=== PATIENT | female | born 1935 | race Caucasian/White ===

== ENCOUNTER 2019-04-01 20:09 | Inpatient (IN) | payer MEDICARE, OTHER ==
--- NOTE | 2019-04-01 22:12 | PDOC ---
Documentation entered by Josefina Mccartney SCRIBE, acting as scribe for Jyothi Hickey MD. Jyothi Hickey MD: This documentation has been prepared by the scribe, Josefina Mccartney SCRIBE, under my direction and personally reviewed by me in its entirety. I confirm that the documentation accurately reflects all work, treatment, procedures, and medical decision making performed by me. Attending Attestation - Resident Resident Name: Austin Curry - ED Attending Attestation I have performed the following: I have examined & evaluated the patient, The case was reviewed & discussed with the resident, I agree w/resident's findings & plan, Exceptions are as noted - HPI HPI: 04/01/19 21:37 The patient is an 84-year-old female with a past medical history significant for HTN, COPD (not on home O2), AAA who presents to the emergency department from [facility] for three days of generalized weakness, decreased appetite, urine output, and no bowel movement. The patient reports shes been bed-bound for the past days. Denies the history of MIs. - Physicial Exam PE: 04/01/19 21:41 GENERAL: Cachectic 84 year old female. No apparent distress. HEENT: Dry mucous membranes. Normocephalic, atraumatic. PERRL, EOM intact. CARDIOVASCULAR: Regular rate and rhythm. PULMONARY: Clear to auscultation bilaterally. ABDOMEN: +flat abdomen with a palpable pulsatile mass. Soft, non-distended, non-tender. EXTREMITIES: Normal ROM in all four extremities. No gross deformities. SKIN: Warm, dry. No rash NEUROLOGICAL: Alert and oriented, moving all her extremities, conversant. - Medical Decision Making 04/01/19 22:10 Cachectic 84-year-old female brought in by ambulance from [facility] for failure to thrive, Bedbound for several days,decreased p.o. intake Concern for infection, UTI, neurological diagnoses such as subacute hematoma, GI bleed, anemia, and STEMI, neoplasm -Patient has a known AAA and surgery was done at [facility] in December 2018 however they were unable to repair her AAA She is DNR and DNI with capacity Her niece is her healthcare proxy and power of tax associate attorney and she is bedside Plan CBC, chemistry, troponin, UA UC, chest x-ray, head CT, CT abdomen pelvis, IV fluids, reassess 04/01/19 22:14 EKG is normal sinus rhythm at 87 bpm with occasional PVCs, right bundle branch block 04/02/19 01:07 CAT scan of the head does not show any acute mass, there is no acute infarct or bleed 04/02/19 20:33
--- NOTE | 2019-04-01 22:13 | PDOC ---
History of Present Illness - General Chief Complaint: Loss of Appetite Stated Complaint: WEAKNESS AND ABDOMINAL PAIN Time Seen by Provider: 04/01/19 20:56 - History of Present Illness Initial Comments: Alina Beckford is a 84 y/o female with PMH significant for HTN, COPD, depression , AAA s/p repair attempt, presenting today with 3 days of decreased appetite, decreased urine output, decreased bowel movements, nausea, and vomiting NBNB. [facility]. Reports that she started having decreased in appetite but denies any associated pain or difficulty swallowing. No abdominal pain. No fever/chills. No chest pain/shortness of breath. No headache. Also reports generalized weakness and that she is no longer able to get out of bed. Past History - Past Medical History Allergies/Adverse Reactions: Allergies Allergy/AdvReac Type Severity Reaction Status Date / Time No Known Allergies Allergy Verified 04/01/19 23:27 Home Medications: Ambulatory Orders Acetaminophen [Tylenol] 650 mg PO PRN PRN 04/02/19 Albuterol Sulfate [Proair Hfa] 8.5 gm IH PRN PRN 04/02/19 Calcium Carbonate [Calcium] 600 mg PO DAILY 04/02/19 Docusate Sodium [Colace] 100 mg PO TID 04/02/19 Escitalopram Oxalate [Lexapro -] 5 mg PO DAILY 04/02/19 Fluticasone Propion/Salmeterol [Wixela 250-50 Inhub] 1 each IH BID 04/02/19 Melatonin 10 mg PO HS 04/02/19 Metoprolol Succinate 50 mg PO DAILY 04/02/19 Polyethylene Glycol 3350 [Miralax (For Daily Use) -] 17 gm PO DAILY 04/02/19 Sennosides [Senna] 8.6 mg PO HS 04/02/19 Tiotropium [place] [Spiriva] 18 mcg IH DAILY 04/02/19 Vit C/E/Zn/Coppr/Lutein/Zeaxan [Preservision Areds 2 Softgel] 1 each PO BID Review of Systems - Review of Systems Comments:: GENERAL/CONSTITUTIONAL: No fever or chills. Reports generalized weakness. Reports decreased appetite. HEAD, EYES, EARS, NOSE AND THROAT: No change in vision. No change in hearing. No sore throat._ CARDIOVASCULAR: No chest pain or shortness of breath_ RESPIRATORY: Denies cough, hemoptysis_ GASTROINTESTINAL: Reports nausea and vomiting. Reports decreased bowel movements. GENITOURINARY: No dysuria, frequency. Reports decreased urination. MUSCULOSKELETAL: No joint or muscle swelling or pain. No neck or back pain._ SKIN: No rash_ NEUROLOGIC: No headache, vertigo, loss of consciousness, or change in strength/ sensation._ ENDOCRINE: No increased thirst. No abnormal weight change_ HEMATOLOGIC/LYMPHATIC: No anemia, easy bleeding, or history of blood clots._ ALLERGIC/IMMUNOLOGIC: No hives or skin allergy._ *Physical Exam - Physical Exam GENERAL: Awake, alert, and oriented to person/place/time, in no acute distress. Pt appears emaciated. HEAD: No signs of trauma, normocephalic, atraumatic _ EYES: PERRLA, EOMI, sclera anicteric, conjunctiva clear_ ENT: Hearing grossly normal, nares patent, oropharynx clear without exudates. No uvular deviation. Moist mucosa_ NECK: Normal ROM, supple, no lymphadenopathy, JVD, or masses_ LUNGS: No distress, speaks in full sentences, clear to auscultation bilaterally _ HEART: Regular rate and rhythm, normal S1 and S2, no murmurs appreciated, peripheral pulses normal and equal bilaterally._ ABDOMEN: Soft, nontender. No guarding, no rebound. Pulsatile mass appreciated consistent with known AAA. EXTREMITIES: Normal inspection, Normal range of motion, no edema. No clubbing or cyanosis_ NEUROLOGICAL: Cranial nerves II through XII grossly intact. Normal speech. SKIN: Warm, Dry, normal turgor, no rashes or lesions noted_ ED Treatment Course - LABORATORY CBC & Chemistry Diagram: 04/03/19 07:35 04/03/19 07:35 - RADIOLOGY Radiology Studies Ordered: Category Date Time Status HEAD CT WITHOUT CONTRAST [CT] Stat CT Scan 04/01/19 21:33 Ordered CHEST X-RAY PORTABLE* [RAD] Stat Radiology 04/01/19 21:33 Taken Medical Decision Making - Medical Decision Making 84F hx of HTN, COPD, known AAA, presenting with generalized weakness, decreased appetite/urine output/BM, failure to thrive. -cbc, cmp -ekg, trop, cxr -ua, ucx -ct head, ct abd pelv w/ contrast 04/01/19 23:36 EKG shows sinus rhythm with occasional PVCs, 87 bpm, RBBB, no ST elevation/ depression, QTc 459, no prior for comparison. 04/02/19 00:01 Labs reviewed. Laboratory Last Values WBC 13.5 K/mm3 (4.0-10.0) H 04/01/19 22:00 RBC 3.69 M/mm3 (3.60-5.2) 04/01/19 22:00 Hgb 10.5 GM/dL (10.7-15.3) L 04/01/19 22:00 Hct 33.3 % (32.4-45.2) 04/01/19 22:00 MCV 90.2 fl (80-96) 04/01/19 22:00 MCH 28.5 pg (25.7-33.7) 04/01/19 22:00 MCHC 31.6 g/dl (32.0-36.0) L 04/01/19 22:00 RDW 17.9 % (11.6-15.6) H 04/01/19 22:00 Plt Count 310 K/MM3 (134-434) 04/01/19 22:00 MPV 9.3 fl (7.5-11.1) 04/01/19 22:00 Absolute Neuts (auto) 9.6 K/mm3 (1.5-8.0) H 04/01/19 22:00 Neutrophils % 71.4 % (42.8-82.8) 04/01/19 22:00 Lymphocytes % 22.3 % (8-40) 04/01/19 22:00 Monocytes % 4.8 % (3.8-10.2) 04/01/19 22:00 Eosinophils % 0.0 % (0-4.5) 04/01/19 22:00 Basophils % 1.5 % (0-2.0) 04/01/19 22:00 Nucleated RBC % 0 % (0-0) 04/01/19 22:00 Sodium 144 mmol/L (136-145) 04/01/19 22:00 Potassium 3.9 mmol/L (3.5-5.1) 04/01/19 22:00 Chloride 105 mmol/L (98-107) 04/01/19 22:00 Carbon Dioxide 33 mmol/L (21-32) H 04/01/19 22:00 Anion Gap 6 MMOL/L (8-16) L 04/01/19 22:00 BUN 23.6 mg/dL (7-18) H 04/01/19 22:00 Creatinine 0.7 mg/dL (0.55-1.3) 04/01/19 22:00 Est GFR (CKD-EPI)AfAm 92.21 04/01/19 22:00 Est GFR (CKD-EPI)NonAf 79.56 04/01/19 22:00 Random Glucose 94 mg/dL (74-106) 04/01/19 22:00 Calcium 10.3 mg/dL (8.5-10.1) H 04/01/19 22:00 Total Bilirubin 0.3 mg/dL (0.2-1) 04/01/19 22:00 AST 17 U/L (15-37) 04/01/19 22:00 ALT 11 U/L (13-61) L 04/01/19 22:00 Alkaline Phosphatase 85 U/L (45-117) 04/01/19 22:00 Creatine Kinase 19 U/L (26-192) L 04/01/19 22:00 Troponin I 0.04 ng/ml (0.00-0.05) 04/01/19 22:00 B-Natriuretic Peptide 1624.1 pg/ml (5-450) H 04/01/19 22:00 Total Protein 6.3 g/dl (6.4-8.2) L 04/01/19 22:00 Albumin 2.4 g/dl (3.4-5.0) L 04/01/19 22:00 TSH 0.44 uIU/ml (0.358-3.74) 04/01/19 22:00 04/02/19 00:16 CXR shows no acute intra thoracic pathology. 04/02/19 01:09 CT head shows no acute intracranial pathology. 04/02/19 02:02 CT abd shows known AAA with outpouchings, and stenosis of the celiac and SMA. D/ w the case with Dr. Augustine. 04/02/19 02:08 D/w Dr. Carmona who accepts the patient for admission. Urine Test Results Urine Color Yellow 04/02/19 01:00 Urine Appearance Clear 04/02/19 01:00 Urine pH 8.0 (5.0-8.0) 04/02/19 01:00 Ur Specific [place] 1.016 (1.010-1.035) 04/02/19 01:00 Urine Protein Negative (NEGATIVE) 04/02/19 01:00 Urine Glucose (UA) Negative (NEGATIVE) 04/02/19 01:00 Urine Ketones Negative (NEGATIVE) 04/02/19 01:00 Urine Blood Negative (NEGATIVE) 04/02/19 01:00 Urine Nitrite Positive (NEGATIVE) H 04/02/19 01:00 Urine Bilirubin Negative (NEGATIVE) 04/02/19 01:00 Ur Leukocyte Esterase 2+ (NEGATIVE) H 04/02/19 01:00 Discharge - Discharge Information Problems reviewed: Yes Clinical Impression/Diagnosis: Failure to thrive, AAA (abdominal aortic aneurysm) Condition: Guarded Disposition: HOME - Admission Yes - Follow up/Referral - Patient Discharge Instructions - Post Discharge Activity
[2019-04-01 22:35] LABS: BASO % 1.5 % (0-2.0); HEMATOCRIT 33.3 % (32.4-45.2); HEMOGLOBIN 10.5 GM/dL (10.7-15.3); LYMPH % 22.3 % (8-40); MCH 28.5 pg (25.7-33.7); MCHC 31.6 g/dl (32.0-36.0); MEAN CELL VOLUME 90.2 fl (80-96); MEAN PLT VOLUME 9.3 fl (7.5-11.1); MONO % 4.8 % (3.8-10.2); NEUT % 71.4 % (42.8-82.8); PLATELET COUNT 310 K/MM3 (134-434); RBC 3.69 M/mm3 (3.60-5.2); RDW 17.9 % (11.6-15.6); WHITE BLOOD COUNT 13.5 K/mm3 (4.0-10.0)
[2019-04-01 23:02] LABS: ALBUMIN 2.4 g/dl (3.4-5.0); BILIRUBIN,TOTAL 0.3 mg/dL (0.2-1); BLOOD UREA NITROGEN 23.6 mg/dL (7-18); CALCIUM 10.3 mg/dL (8.5-10.1); CREATININE 0.7 mg/dL (0.55-1.3); POTASSIUM 3.9 mmol/L (3.5-5.1); TOT PROT 6.3 g/dl (6.4-8.2)
[2019-04-01 23:10] LABS: N-TERMINAL BNP 1624.1 pg/ml (5-450)
[2019-04-01] MEDS ORDERED: SODIUM CHLORIDE 1,000 ML IV STA (23:14)
[2019-04-02 02:39] LABS: EPI CELLS 0.3 /HPF (0-5/HPF); HYALINE CASTS 3 /lpf (0-8); URINE APPEARANCE CLEAR; URINE BACTERIA 1184.1 /hpf (NEGATIVE); URINE BILIRUBIN NEGATIVE (NEGATIVE); URINE COLOR YELLOW; URINE GLUCOSE (UA) NEGATIVE (NEGATIVE); URINE KETONE NEGATIVE (NEGATIVE); URINE LEUK ESTERASE 2+ (NEGATIVE); URINE NITRITE POSITIVE (NEGATIVE); URINE PROTEIN NEGATIVE (NEGATIVE); URINE RBC 1 /hpf (0-4); URINE UROBILINOGEN 0.2 mg/dL (0.2-1.0); URINE WBC 30 /hpf (0-5)
--- NOTE | 2019-04-02 03:44 | HP ---
Admitting History and Physical - Admission Chief Complaint: Acute generalized muscle weakness, and abdominal pain History of Present Illness: This 84 yr old w/f with hx of abdominal aortic aneurysm, HTN, COPD, and depression admitted via ER with an acute generalized muscle weakness, acute anorexia, acute abdominal pain, acute dehydration, and acute abnormal weight loss (40 lbs within past 6 to 7 months). 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 Cardiovascular: Yes: Aneurysm (AAA) Pulmonary: No: Asthma, Bronchitis, Cancer, COPD, O2 Dependent, Pneumonia, Previously Intubated, Pulmonary Embolus, Pulmonary Fibrosis, Sleep Apnea, Other Gastrointestinal: No: Ascites, Cancer, Constipation, Crohn's Disease, Diverticulitis, Diverticulosis, Esophageal Varices, Gastritis, GERD, GI Bleed, Hemorrhoids, Hiatal Hernia, Inflamatory Bowel Disease, Irritable Bowel Disease, Pancreatitis, Peptic Ulcer Disease, Ulcerative Colitis, Other Hepatobiliary: No: Cirrhosis, Cholelithiasis, Cholecystitis, Choledocholithiasis , Hepatitis A, Hepatitis B, Hepatitis C, Other Renal/: No: Renal Failure, Renal Inusuff, BPH, Cancer, Hematuria, Hemodialysis , Neurogenic Bladder, Renal Calculi, UTI, Other Heme/Onc: No: Anemia, B12 Deficiency, Bleeding Disorder, Cancer, Current Chemotherapy, Current Radiation Therapy, Hemochromatosis, Hypercoaguable State, Myeloproliferative Synd, Sickle Cell Disease, Sickle Cell Trait, Thrombocytopenia, Other Infectious Disease: No: AIDS, C-Diff, Herpes Zoster, HIV, MRSA, STD's, Tuberculosis, VREF, Other Psych: No: Addictions, Anxiety, Bipolar, Depression, Panic, Psychosis, Schizophrenia, Other Musculoskeletal: No: Bursitis, Chronic low back pain, Hemiparesis, Hemiplegia, Osteoarthritis, Paraplegia, Other Rheumatology: No: Fibromyalgia, Gout, Lupus, Rheumatoid Arthritis, Sarcoidosis, Vasculitis, Other ENT: No: Allergic Rhinitis, Sinusitis, Other Endocrine: No: Markell's Disease, Abhijit's Disease, Diabetes Insipidus, Diabetes Mellitus, Hyperparathyroidism, Hyperthyroidism, Hypothyroidism, Osteopenia, SIADH, Other Dermatology: No: Basal Cell, Cellulitis, Eczema, Melanoma, Psoriasis, Squamous Cell, Other - Smoking History Smoking history: Former smoker Have you smoked in the past 12 months: No - Alcohol/Substance Use Hx Alcohol Use: No - Social History Usual Living Arrangement: Yes: Assisted Living Home Medications - Allergies Allergies/Adverse Reactions: Allergies Allergy/AdvReac Type Severity Reaction Status Date / Time No Known Allergies Allergy Verified 04/01/19 23:27 Review of Systems - Review of Systems Constitutional: reports: Unintentional Wgt. Loss, Weakness Eyes: reports: No Symptoms HENT: reports: No Symptoms Neck: reports: No Symptoms Cardiovascular: reports: No Symptoms Respiratory: reports: No Symptoms Gastrointestinal: reports: Abdominal Pain Genitourinary: reports: No Symptoms Breasts: reports: No Symptoms Reported Musculoskeletal: reports: No Symptoms Integumentary: reports: No Symptoms Endocrine: reports: No Symptoms Hematology/Lymphatic: reports: No Symptoms Psychiatric: reports: No Symptoms Physical Examination Vital Signs: Vital Signs Temperature 98.2 F 04/01/19 20:09 Pulse Rate 16 L 04/01/19 20:09 Respiratory Rate 18 04/01/19 20:09 Blood Pressure 139/56 L 04/01/19 20:09 O2 Sat by Pulse Oximetry (%) 100 04/01/19 20:09 Constitutional: Yes: Cachectic, Mild Distress Eyes: Yes: Conjunctiva Clear, EOM Intact HENT: Yes: Atraumatic, Normocephalic Neck: Yes: Supple, Trachea Midline Cardiovascular: Yes: Regular Rate and Rhythm Respiratory: Yes: Regular, CTA Bilaterally Gastrointestinal: Yes: Normal Bowel Sounds, Soft, Pulsatile Mass (AAA) ...Rectal Exam: Yes: Deferred Renal/: Yes: WNL Breast(s): Yes: WNL Musculoskeletal: Yes: Muscle Weakness Extremities: Yes: Other (generalized muscle weakness) Edema: No Peripheral Pulses WNL: Yes Peripheral Pulses: Left Radial: 2+, Right Radial: 2+, Left Doralis Pedis: 2+, Right Dorsalis Pedis: 2+, Left Femoral: 3+, Right Femoral: 3+ Integumentary: Yes: WNL Neurological: Yes: WNL, Weakness ...Motor Strength: LUE (muscle weakness), LLE (muscle weakness), RUE (muscle weakness), RLE (muscle weakness) Psychiatric: Yes: WNL Labs: CBC, BMP 04/01/19 22:00 04/01/19 22:00 Imaging - Results Other: Report Reviewed (Lab data reviewed) Problem List - Problems (1) AAA (abdominal aortic aneurysm) Code(s): I71.4 - ABDOMINAL AORTIC ANEURYSM, WITHOUT RUPTURE (2) Failure to thrive Code(s): ASJ6535 - (3) Abnormal weight loss Code(s): R63.4 - ABNORMAL WEIGHT LOSS (4) Cachexia Code(s): R64 - CACHEXIA (5) Dehydration Code(s): E86.0 - DEHYDRATION Assessment/Plan Assessment/plan: acute generalized muscle weakness, acute dehydration, acute abnormal weight loss, acute anorexia, acute debility, AAA, acute failure to thrive; IV fluids, DVT prophylaxis, SCDs, consultation to ID and Security Trainer, physical therapy.
[2019-04-02] MEDS ORDERED: PT OWN MED DRAWER 7, Y5N ONE (09:21)
[2019-04-02] MEDS: ENOXAPARIN NA (PORCINE) 30 MG/0.3 ML DISP.SYRIN SQ SCH (09:21)
--- NOTE | 2019-04-02 09:40 | EKG ---
Test Reason : Blood Pressure : / mmHG Vent. Rate : 087 BPM Atrial Rate : 087 BPM P-R Int : 138 ms QRS Dur : 122 ms QT Int : 382 ms P-R-T Axes : 078 082 073 degrees QTc Int : 459 ms SINUS RHYTHM WITH OCCASIONAL PREMATURE VENTRICULAR COMPLEXES RIGHT BUNDLE BRANCH BLOCK ABNORMAL ECG NO PREVIOUS ECGS AVAILABLE Confirmed by Austin Mcintosh MD ([id number]) on 04/02/2019 9:40:06 AM Referred By: Confirmed By:Austin Mcintosh MD
--- NOTE | 2019-04-02 14:05 | PN ---
Progress Note (short form) - Note Progress Note: Id consult dictated imp/reccd 84 yo female admitted from [facility] with failure to thrive she has a known inoperable AAA- reports she was hospitalized at [facility] in December 2018- reports she is DNR/DNI she has lost 40 pounds since last summer has been getting progressively weaker no appetite one episode of vomiting +nausea no dysuria no fevers no BM for last 3 to 4 days failure to thrive inoperable AAA DNR/DNI leukocytosis/pyuria fecal retention cannot r/o UTI suggest blood cultures ceftriaxone for UTI overall prognosis is poor palliative care seems appropriate Problem List - Problems (1) Failure to thrive Code(s): TCF8735 - (2) AAA (abdominal aortic aneurysm) Code(s): I71.4 - ABDOMINAL AORTIC ANEURYSM, WITHOUT RUPTURE (3) UTI (urinary tract infection) Code(s): N39.0 - URINARY TRACT INFECTION, SITE NOT SPECIFIED (4) Fecal retention Code(s): K59.00 - CONSTIPATION, UNSPECIFIED
[2019-04-02] MEDS: AMINO ACIDS 4.25%/D5W 1,000 ML IV SCH (14:15)
[2019-04-02] MEDS ORDERED: CEFTRIAXONE 1 GM/50 ML BAG ONE (14:19)
[2019-04-02] MEDS: CEFTRIAXONE 1 GM in DEXTROSE 5%-WATER - 50 ML IVPB SCH (14:42)
--- NOTE | 2019-04-02 15:02 | CONS ---
INFECTIOUS DISEASE CONSULTATION DATE OF CONSULTATION: 04/02/2019 HISTORY OF PRESENT ILLNESS: This is a yoana, 84-year-old, woman who comes from assisted living at [facility]. She has a history of hypertension, COPD, and depression. She has an inoperable abdominal aortic aneurysm. She reports she was admitted in December to [facility]. They were unable to repair her aneurysm. She has had over the last 6 months, progressive weight loss of 40 pounds. She has no appetite at all for the last 5-6 weeks. She has not had a bowel movement for the last 3-4 days. She has grown progressively more weak. She is unable to walk for the last 1 week. She has no dysuria. She has had one episode of vomiting and has some persistent nausea. She lives alone. She is unmarried. PAST MEDICAL HISTORY: Notable for the abdominal aortic aneurysm. She has a history of hypertension, COPD, and depression. SURGICAL HISTORY: Was an attempted repair of the aneurysm in December at [facility]. SOCIAL HISTORY: She lives in assisted living. She is a former smoker; she stopped 7 years ago. She is retired. She used to work in [place]. She is single and she has several nieces and nephews who are involved in her life. ALLERGIES: She has no known drug allergies. MEDICATIONS: At the [facility] include Spiriva, senna, MiraLAX, metoprolol, melatonin, Wixela inhaler, Lexapro, Colace, calcium, ProAir, and PreserVision eyedrops. REVIEW OF SYSTEMS: Is notable for the nausea. She had one episode of vomiting. generalized weakness, and lack of appetite with 40-pound weight loss. PHYSICAL EXAMINATION: General: She is a very pleasant, elderly woman. She is alert and oriented x3. She has generalized weakness. Vital Signs: Her temperature is 97.5, pulse of 87, blood pressure 110/48, respiratory rate is 16; she is saturating 100% on room air. HEENT: She is normocephalic. Her eyes are anicteric. Neck: Supple. She has severe cachexia. Lungs: Clear to auscultation. Heart: Regular rate and rhythm. Abdomen: Soft. Peripheral Vascular: She has bilateral femoral pulses. Her feet are warm. Extremities: Without edema. LABORATORIES: Her white count is 13.5, hemoglobin 10.5, platelets are 310. BUN and creatinine are 23 and 0.7. LFTs are normal. Her urinalysis has 2+ leuks with 30 white cells. Urine culture has been sent. IMAGING: She had a chest x-ray done in the emergency room that is notable for hyperaeration, a heavily calcified aorta, no acute process. She had a head CT and CT of her abdomen and pelvis. The head CT shows no acute process and the CAT scan of her abdomen and pelvis is notable for an abdominal aortic aneurysm with extensive thrombosis. She has moderate fecal retention. In summary, this is an 84-year-old woman with failure to thrive, severe weight loss, inoperable abdominal aortic aneurysm. She weighs 27 kg. She is DNR, DNI. She has leukocytosis and pyuria with fecal retention. Cannot rule out UTI. Would suggest you get blood cultures. Treat her with ceftriaxone. Overall prognosis is poor. Palliative care seems appropriate. XAVIER FERNANDES M.D. [id number] MTDD
[2019-04-02] MEDS ORDERED: POLYETHYLENE GLYCOL 3350 119 GM BTL PO ONE (15:37)
[2019-04-02] MEDS ORDERED: DOCUSATE SODIUM 100 MG CAPSULE (FP) PO PRN (15:38)
[2019-04-02] MEDS ORDERED: PANTOPRAZOLE SODIUM 40 MG VIAL ONE (16:07)
[2019-04-02] MEDS: PANTOPRAZOLE SODIUM 40 MG VIAL IVPUSH SCH (16:13)
[2019-04-02 19:18] VITALS: BMI 12.2
[2019-04-02] MEDS ORDERED: ALBUTEROL SO4 2.5/IPRATROPIUM 0.5 INH SOL 3 ML VIAL.NEB. NEB PRN (19:32)
[2019-04-02] MEDS ORDERED: ONDANSETRON 4 MG/2 ML VIAL IVPUSH PRN (19:53)
[2019-04-02] MEDS: SENNOSIDES 8.6MG TABLET (FP) PO SCH (21:33)
[2019-04-02] MEDS: MELATONIN 5 MG TABLETS PO SCH (21:33)
[2019-04-02] MEDS: DOCUSATE SODIUM 100 MG CAPSULE (FP) PO SCH (21:33)
[2019-04-02] MEDS ORDERED: FAT EMULSION/OLIVE/SOY (CLINOLIPID) 250 ML EMULSION IV SCH (22:00)
[2019-04-03] MEDS: FAT EMULSION/OLIVE/SOY/PHOSPHO 250 ML IV SCH ×2 (01:08→21:44)
[2019-04-03] MEDS: DOCUSATE SODIUM 100 MG CAPSULE (FP) PO SCH ×3 (06:22→21:38)
[2019-04-03 08:34] LABS: BASO % 0.4 % (0-2.0); EOS % 0.6 % (0-4.5); HEMATOCRIT 31.5 % (32.4-45.2); HEMOGLOBIN 10.1 GM/dL (10.7-15.3); LYMPH % 21.8 % (8-40); MCH 28.9 pg (25.7-33.7); MCHC 32.2 g/dl (32.0-36.0); MEAN CELL VOLUME 89.8 fl (80-96); MEAN PLT VOLUME 10.1 fl (7.5-11.1); MONO % 4.2 % (3.8-10.2); PLATELET COUNT 251 K/MM3 (134-434); RDW 17.9 % (11.6-15.6); WHITE BLOOD COUNT 14.7 K/mm3 (4.0-10.0)
[2019-04-03 09:07] LABS: ALBUMIN 2.1 g/dl (3.4-5.0); BILIRUBIN,TOTAL 0.5 mg/dL (0.2-1); BLOOD UREA NITROGEN 31.9 mg/dL (7-18); CALCIUM 8.6 mg/dL (8.5-10.1); CREATININE 0.6 mg/dL (0.55-1.3); TOT PROT 5.7 g/dl (6.4-8.2)
[2019-04-03 09:14] LABS: POTASSIUM 2.8 mmol/L (3.5-5.1)
[2019-04-03] MEDS ORDERED: DEXTROSE 5%-WATER - 50 ML IVPB ONE (09:32)
[2019-04-03] MEDS ORDERED: cefTRIAXone SODIUM 1 GM VIAL ONE (09:32)
[2019-04-03] MEDS: CEFTRIAXONE 1 GM in DEXTROSE 5%-WATER - 50 ML IVPB SCH (09:45)
[2019-04-03] MEDS: ENOXAPARIN NA (PORCINE) 30 MG/0.3 ML DISP.SYRIN SQ SCH (09:45)
[2019-04-03] MEDS: AMINO ACIDS 4.25%/D5W 1,000 ML IV SCH ×2 (09:46→16:24)
[2019-04-03] MEDS: POLYETHYLENE GLYCOL 3350 119 GM BTL PO SCH (09:46)
[2019-04-03] MEDS: TIOTROPIUM BROMIDE 2.5 MCG (SPIRIVA) RESPIMAT INHALER IH SCH (09:52)
[2019-04-03] MEDS: PANTOPRAZOLE SODIUM 40 MG VIAL IVPUSH SCH (09:52)
--- NOTE | 2019-04-03 09:53 | PN ---
Progress Note, Physician Chief Complaint: Patient seen and examined at the bedside, no acute events from last night, generalized muscle weakness. History of Present Illness: This 84 yr old w/f with PMH of 4.8cm in diameter AAA, HTN, COPD, and depression admitted via ER with an acute generalized muscle weakness, acute abnormal weight loss (40 lbs with past 6 months), acute anorexia, acute abdominal pain, acute constipation, and an acute dehydration. - Current Medication List Current Medications: Active Medications Acetaminophen (Tylenol -) 650 mg PO Q6H PRN PRN Reason: MODERATE PAIN Albuterol/Ipratropium (Duoneb -) 1 amp NEB Q6H PRN PRN Reason: SHORTNESS OF BREATH Docusate Sodium (Colace -) 100 mg PO TID [facility] Last Admin: 04/03/19 06:22 Dose: 100 mg Enoxaparin Sodium (Lovenox -) 30 mg SQ DAILY [facility] Last Admin: 04/02/19 09:21 Dose: 30 mg Amino Acids (Clinimix -) 1,000 mls @ 60 mls/hr IV Q24H [facility] Last Admin: 04/02/19 14:15 Dose: 60 mls/hr Fat Emulsion-Piru Oil/Soybean Oil (Clinolipid 20% Iv Fat Emulsion) 250 mls @ 20.833 mls/hr IV DAILY@2200 [facility] Last Admin: 04/03/19 01:08 Dose: 20.833 mls/hr Ceftriaxone Sodium 1 gm/ (Dextrose) 50 mls @ 200 mls/hr IVPB DAILY [facility]; Protocol Last Admin: 04/02/19 14:42 Dose: 200 mls/hr Melatonin (Melatonin) 10 mg PO HS [facility] Last Admin: 04/02/19 21:33 Dose: 10 mg Metoprolol Succinate (Toprol Xl -) 50 mg PO DAILY [facility] Ondansetron HCl (Zofran Injection) 1 mg IVPUSH Q6H PRN PRN Reason: NAUSEA Pantoprazole Sodium (Protonix Iv) 20 mg IVPUSH DAILY [facility] Last Admin: 04/02/19 16:13 Dose: 20 mg Polyethylene Glycol (Miralax (For Daily Use) -) 17 gm PO DAILY [facility] Senna (Senna -) 1 tab PO [facility] Last Admin: 04/02/19 21:33 Dose: 1 tab Tiotropium [place] (Spiriva Respimat) 2 puff IH DAILY YISSEL - Objective Vital Signs: Vital Signs Temperature 97.9 F 04/03/19 09:19 Pulse Rate 99 H 04/03/19 09:19 Respiratory Rate 20 04/03/19 09:19 Blood Pressure 124/58 L 04/03/19 09:19 O2 Sat by Pulse Oximetry (%) 91 L 04/02/19 21:00 Constitutional: Yes: Cachectic, Thin, Other (failure to thrive) Eyes: Yes: Conjunctiva Clear, EOM Intact HENT: Yes: Atraumatic, Normocephalic Neck: Yes: Supple, Trachea Midline Cardiovascular: Yes: Regular Rate and Rhythm Respiratory: Yes: Regular, CTA Bilaterally Gastrointestinal: Yes: Normal Bowel Sounds, Soft, Pulsatile Mass (AAA) ...Rectal Exam: Yes: Deferred Genitourinary: Yes: WNL Breast(s): Yes: WNL Musculoskeletal: Yes: Muscle Weakness Extremities: Yes: Other (generalized muscle weakness) Edema: No Peripheral Pulses WNL: Yes Integumentary: Yes: WNL Neurological: Yes: Unsteady Gait, Weakness Psychiatric: Yes: WNL Labs: CBC, BMP 04/03/19 07:35 04/03/19 07:35 - ....Imaging Other: Report Reviewed (Lab data reviewed) Problem List - Problems (1) AAA (abdominal aortic aneurysm) Code(s): I71.4 - ABDOMINAL AORTIC ANEURYSM, WITHOUT RUPTURE (2) Failure to thrive Code(s): [id number] - (3) Abnormal weight loss Code(s): R63.4 - ABNORMAL WEIGHT LOSS (4) Cachexia Code(s): R64 - CACHEXIA (5) Dehydration Code(s): E86.0 - DEHYDRATION (6) Acute hypokalemia Code(s): E87.6 - HYPOKALEMIA (7) Debility Code(s): R53.81 - OTHER MALAISE (8) Leukocytosis Code(s): D72.829 - ELEVATED WHITE BLOOD CELL COUNT, UNSPECIFIED Assessment/Plan Assessment/plan: acute generalized muscle weakness, acute dehydration, acute abnormal weight loss, acute hypokalemia, acute leukocytosis, acute failure to thrive, acute cachexia, acute anorexia, 4.8cm in diameter AAA; IV fluids, IV potassium chloride, IV Clninimix, IV Lipids, DVT prophylaxis, SCDs, physical therapy.
--- NOTE | 2019-04-03 13:56 | PN ---
Progress Note (short form) - Note Progress Note: remains with no appetite constipation no vomiting Vital Signs Period Temp Pulse Resp BP Sys/Moran Pulse Ox Last 24 Hr 97.6 F-97.9 F 95-104 20-20 117-140/40-67 89-91 cor-rrr lungs clear abd soft,nt ext no edema CBC, BMP 04/03/19 07:35 04/03/19 07:35 Microbiology 04/02/19 01:00 Urine - Urine Clean Catch Urine Culture - Preliminary Non Lactose Fermenting Gnb blood culturs pending a/p failure to thrive inoperable AAA DNR/DNI leukocytosis/pyuria fecal retention cannot r/o UTI suggest blood cultures ceftriaxone for UTI overall prognosis is poor palliative care seems appropriate will f/u cultures
[2019-04-03] MEDS: KCL 10 MEQ IVPB 10 MEQ/100 ML INFUS.BAG IVPB SCH ×3 (16:24→20:30)
[2019-04-03] MEDS: MELATONIN 5 MG TABLETS PO SCH (21:38)
[2019-04-03] MEDS: SENNOSIDES 8.6MG TABLET (FP) PO SCH (21:38)
[2019-04-04] MEDS: DOCUSATE SODIUM 100 MG CAPSULE (FP) PO SCH ×3 (06:21→21:21)
[2019-04-04 08:13] LABS: BASO % 0.2 % (0-2.0); EOS % 0.6 % (0-4.5); HEMATOCRIT 31.8 % (32.4-45.2); HEMOGLOBIN 10.4 GM/dL (10.7-15.3); LYMPH % 14.3 % (8-40); MCH 29.5 pg (25.7-33.7); MCHC 32.7 g/dl (32.0-36.0); MEAN CELL VOLUME 90.3 fl (80-96); MEAN PLT VOLUME 9.9 fl (7.5-11.1); MONO % 4.7 % (3.8-10.2); NEUT % 80.2 % (42.8-82.8); PLATELET COUNT 236 K/MM3 (134-434); RBC 3.53 M/mm3 (3.60-5.2); RDW 17.1 % (11.6-15.6); WHITE BLOOD COUNT 16.9 K/mm3 (4.0-10.0)
[2019-04-04 09:41] LABS: BILIRUBIN,TOTAL 0.2 mg/dL (0.2-1); CALCIUM 8.5 mg/dL (8.5-10.1); CREATININE 0.5 mg/dL (0.55-1.3); POTASSIUM 3.1 mmol/L (3.5-5.1); TOT PROT 5.5 g/dl (6.4-8.2)
[2019-04-04] MEDS ORDERED: cefTRIAXone SODIUM 1 GM VIAL ONE (10:02)
[2019-04-04] MEDS ORDERED: DEXTROSE 5%-WATER - 50 ML IVPB ONE ×2 (10:02→21:13)
[2019-04-04] MEDS: CEFTRIAXONE 1 GM in DEXTROSE 5%-WATER - 50 ML IVPB SCH (10:08)
[2019-04-04] MEDS: PANTOPRAZOLE SODIUM 40 MG VIAL IVPUSH SCH (10:09)
[2019-04-04] MEDS: POLYETHYLENE GLYCOL 3350 119 GM BTL PO SCH (10:09)
[2019-04-04] MEDS: ENOXAPARIN NA (PORCINE) 30 MG/0.3 ML DISP.SYRIN SQ SCH (10:10)
[2019-04-04] MEDS: TIOTROPIUM BROMIDE 2.5 MCG (SPIRIVA) RESPIMAT INHALER IH SCH (10:10)
--- NOTE | 2019-04-04 10:16 | PN ---
Progress Note, Physician Chief Complaint: Patient seen and examined at the bedside, no acute events from last night except for pain and swelling of tongue, and generalized muscle weakness. History of Present Illness: This 84 yr old w/f with PMH of AAA, HTN, COPD, and depression admitted via ER with an acute generalized muscle weakness, acute cachexia, acute anorexia, acute failure to thrive, and an acute abnormal weight loss, acute dehydration, and acute hypokalemia. At present, she is c/o pain and swelling of her tongue ( poor dental hygiene). - Current Medication List Current Medications: Active Medications Acetaminophen (Tylenol -) 650 mg PO Q6H PRN PRN Reason: MODERATE PAIN Albuterol/Ipratropium (Duoneb -) 1 amp NEB Q6H PRN PRN Reason: SHORTNESS OF BREATH Docusate Sodium (Colace -) 100 mg PO TID [facility] Last Admin: 04/04/19 06:21 Dose: 100 mg Enoxaparin Sodium (Lovenox -) 30 mg SQ DAILY [facility] Last Admin: 04/03/19 09:45 Dose: 30 mg Amino Acids (Clinimix -) 1,000 mls @ 60 mls/hr IV Q24H [facility] Last Admin: 04/03/19 16:24 Dose: 60 mls/hr Fat Emulsion-[place] Oil/Soybean Oil (Clinolipid 20% Iv Fat Emulsion) 250 mls @ 20.833 mls/hr IV DAILY@2200 [facility] Last Admin: 04/03/19 21:44 Dose: 20.833 mls/hr Ceftriaxone Sodium 1 gm/ (Dextrose) 50 mls @ 200 mls/hr IVPB DAILY [facility]; Protocol Last Admin: 04/03/19 09:45 Dose: 200 mls/hr Melatonin (Melatonin) 10 mg PO HS [facility] Last Admin: 04/03/19 21:38 Dose: 10 mg Metoprolol Succinate (Toprol Xl -) 50 mg PO DAILY [facility] Last Admin: 04/03/19 09:45 Dose: 50 mg Ondansetron HCl (Zofran Injection) 1 mg IVPUSH Q6H PRN PRN Reason: NAUSEA Pantoprazole Sodium (Protonix Iv) 20 mg IVPUSH DAILY [facility] Last Admin: 04/03/19 09:52 Dose: 20 mg Polyethylene Glycol (Miralax (For Daily Use) -) 17 gm PO DAILY [facility] Last Admin: 04/03/19 09:46 Dose: 17 grams Senna (Senna -) 1 tab PO HS [facility] Last Admin: 04/03/19 21:38 Dose: 1 tab Tiotropium [place] (Spiriva Respimat) 2 puff IH DAILY [facility] Last Admin: 04/03/19 09:52 Dose: 2 puff - Objective Vital Signs: Vital Signs Temperature 97.9 F 04/04/19 06:00 Pulse Rate 87 04/04/19 06:00 Respiratory Rate 18 04/04/19 06:00 Blood Pressure 138/58 L 04/04/19 06:00 O2 Sat by Pulse Oximetry (%) 97 04/03/19 21:00 Constitutional: Yes: Cachectic, Mild Distress Eyes: Yes: Conjunctiva Clear, EOM Intact HENT: Yes: Atraumatic, Normocephalic Neck: Yes: Supple, Trachea Midline Cardiovascular: Yes: Regular Rate and Rhythm Respiratory: Yes: Regular, CTA Bilaterally Gastrointestinal: Yes: Normal Bowel Sounds, Soft ...Rectal Exam: Yes: Deferred Genitourinary: Yes: WNL Breast(s): Yes: WNL Musculoskeletal: Yes: Muscle Weakness Edema: No Peripheral Pulses WNL: Yes Integumentary: Yes: WNL Neurological: Yes: Unsteady Gait, Weakness ...Motor Strength: LUE (muscle weakness), LLE (muscle weakness), RUE (muscle weakness), RLE (muscle weakness) Psychiatric: Yes: WNL Labs: CBC, BMP 04/04/19 07:37 04/04/19 07:37 - ....Imaging Other: Report Reviewed (Lab data reviewed) Problem List - Problems (1) AAA (abdominal aortic aneurysm) Code(s): I71.4 - ABDOMINAL AORTIC ANEURYSM, WITHOUT RUPTURE (2) Failure to thrive Code(s): [id number] - (3) Abnormal weight loss Code(s): R63.4 - ABNORMAL WEIGHT LOSS (4) Cachexia Code(s): R64 - CACHEXIA (5) Dehydration Code(s): E86.0 - DEHYDRATION (6) Acute hypokalemia Code(s): E87.6 - HYPOKALEMIA (7) Debility Code(s): R53.81 - OTHER MALAISE (8) Leukocytosis Code(s): D72.829 - ELEVATED WHITE BLOOD CELL COUNT, UNSPECIFIED (9) Swollen tongue Code(s): R22.0 - LOCALIZED SWELLING, MASS AND LUMP, HEAD (10) Hypoalbuminemia Code(s): E88.09 - OTH DISORDERS OF PLASMA-PROTEIN METABOLISM, NEC (11) Hypoproteinemia Code(s): E77.8 - OTHER DISORDERS OF GLYCOPROTEIN METABOLISM Assessment/Plan Assessment/plan: acutely rising neutrophilic leukocytosis, acute Pseudomonas aeruginosa UTI, acute swelling of tongue, acute dental caries, acute generalized muscle weakness, acute cachexia, acute anorexia, acute abnormal weight loss, acute glossitis, acute dehydration, acute hypokalemia, acute hyponatremia; IV Clinimix, IV Lipids, IV potassium chloride, IV Ceftriaxone as per ID, DVT prophylaxis, SCDs, oxygen 2L/min via nasal cannula, physical therapy.
[2019-04-04] MEDS: AMINO ACIDS 4.25%/D5W 1,000 ML IV SCH (11:57)
[2019-04-04] MEDS: KCL 10 MEQ IVPB 10 MEQ/100 ML INFUS.BAG IVPB SCH ×3 (11:58→19:36)
[2019-04-04] MEDS ORDERED: PT OWN MED DRAWER 7, Y5N ONE ×2 (13:22→21:19)
--- NOTE | 2019-04-04 17:23 | PN ---
Progress Note (short form) - Note Progress Note: more alert today Vital Signs Period Temp Pulse Resp BP Sys/[place]an Pulse Ox Last 24 Hr 97.7 F-98.3 F 80-90 18-20 127-146/47-64 94-97 cor-rrr lungs decreased bs at bases abd soft ext no edema CBC, BMP 04/04/19 07:37 04/04/19 07:37 Microbiology 04/02/19 01:00 Urine - Urine Clean Catch Urine Culture - Final Pseudomonas Aeruginosa 04/02/19 16:30 Blood - Peripheral Venous Blood Culture - Preliminary NO GROWTH OBTAINED AFTER 24 HOURS, INCUBATION TO CONTINUE FOR 4 DAYS. 04/02/19 16:30 Blood - Peripheral Venous Blood Culture - Preliminary NO GROWTH OBTAINED AFTER 24 HOURS, INCUBATION TO CONTINUE FOR 4 DAYS. a/p failure to thrive inoperable AAA DNR/DNI leukocytosis/pyuria-pseudomonas uti- switch to fortaz- would avoid quinolones in this patient with inoperable AAA fecal retention overall prognosis is poor palliative care seems appropriate
[2019-04-04] MEDS: ACETAMINOPHEN 325 MG TABLET (FP) PO PRN (19:57)
[2019-04-04] MEDS ORDERED: cefTAZidime PENTAHYDRATE 1 GM VIAL (RESTRICTED TO ID) ONE (21:12)
[2019-04-04] MEDS: MELATONIN 5 MG TABLETS PO SCH (21:21)
[2019-04-04] MEDS: CEFTAZIDIME PENTAHYDRATE 1 GM in DEXTROSE 5%-WATER - 50 ML IVPB SCH (21:21)
[2019-04-04] MEDS: SENNOSIDES 8.6MG TABLET (FP) PO SCH (21:21)
[2019-04-04] MEDS: FAT EMULSION/OLIVE/SOY/PHOSPHO 250 ML IV SCH (21:22)
[2019-04-05] MEDS: DOCUSATE SODIUM 100 MG CAPSULE (FP) PO SCH ×3 (06:48→21:19)
[2019-04-05 08:22] LABS: BILIRUBIN,TOTAL 0.2 mg/dL (0.2-1); BLOOD UREA NITROGEN 28.3 mg/dL (7-18); CALCIUM 8.6 mg/dL (8.5-10.1); CREATININE 0.4 mg/dL (0.55-1.3); POTASSIUM 3.4 mmol/L (3.5-5.1); TOT PROT 5.4 g/dl (6.4-8.2)
[2019-04-05 08:33] LABS: BASO % 0.2 % (0-2.0); EOS % 0.6 % (0-4.5); HEMATOCRIT 31.2 % (32.4-45.2); HEMOGLOBIN 10.3 GM/dL (10.7-15.3); LYMPH % 13.3 % (8-40); MCH 29.2 pg (25.7-33.7); MEAN CELL VOLUME 88.5 fl (80-96); MEAN PLT VOLUME 10.3 fl (7.5-11.1); NEUT % 80.9 % (42.8-82.8); PLATELET COUNT 227 K/MM3 (134-434); RBC 3.52 M/mm3 (3.60-5.2); RDW 16.6 % (11.6-15.6); WHITE BLOOD COUNT 14.2 K/mm3 (4.0-10.0)
--- NOTE | 2019-04-05 08:43 | PN ---
Progress Note, Physician Chief Complaint: Patient seen and examined at the bedside, no acute events from last night, cough , dyspnea and tachypnea. History of Present Illness: This 84 yr old w/f with PMH of HTN, COPD, AAA, and depression admitted with an acute generalized muscle weakness, cachexia, severe malnutrition, anorexia, abnormal weight loss, debility, failure to thrive, acute UTI, swelling of tongue , and dental caries. - Current Medication List Current Medications: Active Medications Acetaminophen (Tylenol -) 650 mg PO Q6H PRN PRN Reason: MODERATE PAIN Last Admin: 04/04/19 19:57 Dose: 650 mg Albuterol/Ipratropium (Duoneb -) 1 amp NEB Q6H PRN PRN Reason: SHORTNESS OF BREATH Docusate Sodium (Colace -) 100 mg PO TID [facility] OF [facility] Last Admin: 04/05/19 06:48 Dose: 100 mg Enoxaparin Sodium (Lovenox -) 30 mg SQ DAILY [facility] Last Admin: 04/04/19 10:10 Dose: 30 mg Furosemide (Lasix Injection -) 20 mg IVPUSH ONCE ONE Stop: 04/05/19 08:38 Amino Acids (Clinimix -) 1,000 mls @ 60 mls/hr IV Q24H [facility] Last Admin: 04/04/19 11:57 Dose: 60 mls/hr Fat Emulsion-[place] Oil/Soybean Oil (Clinolipid 20% Iv Fat Emulsion) 250 mls @ 20.833 mls/hr IV DAILY@2200 [facility] Last Admin: 04/04/19 21:22 Dose: 20.833 mls/hr Ceftazidime 1 gm/ Dextrose 50 mls @ 100 mls/hr IVPB BID [facility]; Protocol Last Admin: 04/04/19 21:21 Dose: 100 mls/hr Melatonin (Melatonin) 10 mg PO HS [facility] Last Admin: 04/04/19 21:21 Dose: 10 mg Metoprolol Succinate (Toprol Xl -) 50 mg PO DAILY [facility] Last Admin: 04/04/19 10:10 Dose: 50 mg Ondansetron HCl (Zofran Injection) 1 mg IVPUSH Q6H PRN PRN Reason: NAUSEA Pantoprazole Sodium (Protonix Iv) 20 mg IVPUSH DAILY [facility] Last Admin: 04/04/19 10:09 Dose: 20 mg Polyethylene Glycol (Miralax (For Daily Use) -) 17 gm PO DAILY [facility] Last Admin: 04/04/19 10:09 Dose: 17 grams Senna (Senna -) 1 tab PO HS [facility] Last Admin: 04/04/19 21:21 Dose: 1 tab Tiotropium [place] (Spiriva Respimat) 2 puff IH DAILY [facility] Last Admin: 04/04/19 10:10 Dose: 2 puff - Objective Vital Signs: Vital Signs Temperature 97.6 F 04/04/19 22:00 Pulse Rate 84 04/04/19 22:00 Respiratory Rate 18 04/04/19 22:00 Blood Pressure 129/73 04/04/19 22:00 O2 Sat by Pulse Oximetry (%) 100 04/04/19 21:00 Constitutional: Yes: Anxious, Cachectic, Mild Distress Eyes: Yes: Conjunctiva Clear, EOM Intact HENT: Yes: Atraumatic, Normocephalic, Thrush Neck: Yes: Supple, Trachea Midline Cardiovascular: Yes: Regular Rate and Rhythm Respiratory: Yes: Diminished, On Nasal O2, Rales, Rhonchi, SOB, SOB on Exertion , Tachypnea Gastrointestinal: Yes: Normal Bowel Sounds, Soft ...Rectal Exam: Yes: Deferred Genitourinary: Yes: WNL Breast(s): Yes: WNL Musculoskeletal: Yes: Muscle Weakness Extremities: Yes: Other (generalized muscle weakness) Edema: No Peripheral Pulses WNL: Yes Peripheral Pulses: Left Radial: 2+, Right Radial: 2+ Integumentary: Yes: WNL Neurological: Yes: Unsteady Gait, Weakness ...Motor Strength: LUE (muscle weakness), LLE (muscle weakness), RUE (muscle weakness), RLE (muscle weakness) Psychiatric: Yes: Alert Labs: CBC, BMP 04/05/19 06:37 - ....Imaging Other: Report Reviewed (Lab data reviewed) Problem List - Problems (1) AAA (abdominal aortic aneurysm) Code(s): I71.4 - ABDOMINAL AORTIC ANEURYSM, WITHOUT RUPTURE (2) Failure to thrive Code(s): [id number] - (3) Abnormal weight loss Code(s): R63.4 - ABNORMAL WEIGHT LOSS (4) Cachexia Code(s): R64 - CACHEXIA (5) Dehydration Code(s): E86.0 - DEHYDRATION (6) Acute hypokalemia Code(s): E87.6 - HYPOKALEMIA (7) Debility Code(s): R53.81 - OTHER MALAISE (8) Leukocytosis Code(s): D72.829 - ELEVATED WHITE BLOOD CELL COUNT, UNSPECIFIED (9) Swollen tongue Code(s): R22.0 - LOCALIZED SWELLING, MASS AND LUMP, HEAD (10) Hypoalbuminemia Code(s): E88.09 - OTH DISORDERS OF PLASMA-PROTEIN METABOLISM, NEC (11) Hypoproteinemia Code(s): E77.8 - OTHER DISORDERS OF GLYCOPROTEIN METABOLISM Assessment/Plan Assessment/plan: acute generalized muscle weakness, acute UTI, acute Pseudomonas infection, acute abnormal weight loss, acute anorexia, acute dyspnea and tachypnea, acute oral thrush, acute pulmonary vascular congestion; IV Clinimix, IV Lipids, IV Furosemide, oxygen 3L/min via nasal cannula (oxygen sat 92%) to maintain oxygen sat above 90%, IV Ceftazidime as per ID, DVT prophylaxis, physical therapy, fall precautions, aspiration precautions, oral Nystatin.
[2019-04-05] MEDS ORDERED: FUROSEMIDE 40 MG/4 ML INJECTABLE VIAL IVPUSH ONE (09:00)
[2019-04-05] MEDS ORDERED: DEXTROSE 5%-WATER - 50 ML IVPB ONE ×2 (10:15→21:06)
[2019-04-05] MEDS ORDERED: cefTAZidime PENTAHYDRATE 1 GM VIAL (RESTRICTED TO ID) ONE ×2 (10:15→21:06)
[2019-04-05] MEDS: NYSTATIN 500,000 UNITS/5 ML SUSPENSION PO SCH ×3 (10:44→21:20)
[2019-04-05] MEDS: KCL 10 MEQ IVPB 10 MEQ/100 ML INFUS.BAG IVPB SCH ×3 (10:44→18:00)
[2019-04-05] MEDS: CEFTAZIDIME PENTAHYDRATE 1 GM in DEXTROSE 5%-WATER - 50 ML IVPB SCH ×2 (10:44→21:20)
[2019-04-05] MEDS: PANTOPRAZOLE SODIUM 40 MG VIAL IVPUSH SCH (10:45)
[2019-04-05] MEDS: ENOXAPARIN NA (PORCINE) 30 MG/0.3 ML DISP.SYRIN SQ SCH (10:46)
[2019-04-05] MEDS: TIOTROPIUM BROMIDE 2.5 MCG (SPIRIVA) RESPIMAT INHALER IH SCH (10:47)
[2019-04-05] MEDS: POLYETHYLENE GLYCOL 3350 119 GM BTL PO SCH (12:12)
[2019-04-05] MEDS ORDERED: NYSTATIN 500,000 UNITS TABLET PO SCH (14:00)
[2019-04-05] MEDS: AMINO ACIDS 4.25%/D5W 1,000 ML IV SCH (15:28)
[2019-04-05] MEDS: ACETAMINOPHEN 325 MG TABLET (FP) PO PRN (20:32)
[2019-04-05] MEDS: SENNOSIDES 8.6MG TABLET (FP) PO SCH (21:19)
[2019-04-05] MEDS: MELATONIN 5 MG TABLETS PO SCH (21:20)
[2019-04-05] MEDS ORDERED: ALBUTEROL SO4 2.5/IPRATROPIUM 0.5 INH SOL 3 ML VIAL.NEB. NEB PRN (22:02)
[2019-04-05] MEDS: FAT EMULSION/OLIVE/SOY/PHOSPHO 250 ML IV SCH (22:06)
[2019-04-06] MEDS: NYSTATIN 500,000 UNITS/5 ML SUSPENSION PO SCH ×3 (06:30→22:26)
[2019-04-06] MEDS: DOCUSATE SODIUM 100 MG CAPSULE (FP) PO SCH ×4 (06:30→22:40)
[2019-04-06 08:42] LABS: BASO % 0.3 % (0-2.0); EOS % 0.7 % (0-4.5); HEMOGLOBIN 10.2 GM/dL (10.7-15.3); LYMPH % 9.8 % (8-40); MCH 29.3 pg (25.7-33.7); MCHC 32.9 g/dl (32.0-36.0); MEAN CELL VOLUME 89.1 fl (80-96); MEAN PLT VOLUME 10.1 fl (7.5-11.1); MONO % 4.7 % (3.8-10.2); NEUT % 84.5 % (42.8-82.8); PLATELET COUNT 235 K/MM3 (134-434); RBC 3.48 M/mm3 (3.60-5.2); WHITE BLOOD COUNT 14.8 K/mm3 (4.0-10.0)
[2019-04-06 09:30] LABS: ALBUMIN 1.9 g/dl (3.4-5.0); BILIRUBIN,TOTAL 0.6 mg/dL (0.2-1); BLOOD UREA NITROGEN 23.1 mg/dL (7-18); CALCIUM 8.3 mg/dL (8.5-10.1); CREATININE 0.4 mg/dL (0.55-1.3); POTASSIUM 3.1 mmol/L (3.5-5.1); TOT PROT 5.6 g/dl (6.4-8.2)
[2019-04-06] MEDS ORDERED: DEXTROSE 5%-WATER - 50 ML IVPB ONE ×2 (09:43→22:22)
[2019-04-06] MEDS ORDERED: cefTAZidime PENTAHYDRATE 1 GM VIAL (RESTRICTED TO ID) ONE ×2 (09:43→22:22)
[2019-04-06] MEDS: CEFTAZIDIME PENTAHYDRATE 1 GM in DEXTROSE 5%-WATER - 50 ML IVPB SCH ×2 (10:15→22:26)
[2019-04-06] MEDS: ENOXAPARIN NA (PORCINE) 30 MG/0.3 ML DISP.SYRIN SQ SCH (10:15)
[2019-04-06] MEDS: PANTOPRAZOLE SODIUM 40 MG VIAL IVPUSH SCH (10:16)
[2019-04-06] MEDS: TIOTROPIUM BROMIDE 2.5 MCG (SPIRIVA) RESPIMAT INHALER IH SCH (10:18)
[2019-04-06] MEDS: POLYETHYLENE GLYCOL 3350 119 GM BTL PO SCH (10:38)
--- NOTE | 2019-04-06 11:47 | PN ---
Progress Note, Physician Chief Complaint: Patient seen and examined at the bedside, no acute events from last night, productive cough. History of Present Illness: This 84 yr old w/f with PMH of AAA, HTN, COPD, and depression admitted via ER with an acute generalized muscle weakness, acute abnormal weight loss, acute anorexia, acute cachexia, acute severe malnutrition, failure to thrive, acute UTI, swollen tongue, and dental caries. - Current Medication List Current Medications: Active Medications Acetaminophen (Tylenol -) 650 mg PO Q6H PRN PRN Reason: MODERATE PAIN Last Admin: 04/05/19 20:32 Dose: 650 mg Albuterol/Ipratropium (Duoneb -) 1 amp NEB Q6H PRN PRN Reason: SHORTNESS OF BREATH Docusate Sodium (Colace -) 100 mg PO TID [facility] Last Admin: 04/06/19 06:30 Dose: Not Given Enoxaparin Sodium (Lovenox -) 30 mg SQ DAILY [facility] Last Admin: 04/06/19 10:15 Dose: 30 mg Fat Emulsion-[place] Oil/Soybean Oil (Clinolipid 20% Iv Fat Emulsion) 250 mls @ 20.833 mls/hr IV DAILY@2200 [facility] Last Admin: 04/05/19 22:06 Dose: 20.833 mls/hr Ceftazidime 1 gm/ Dextrose 50 mls @ 100 mls/hr IVPB BID [facility]; Protocol Last Admin: 04/06/19 10:15 Dose: 100 mls/hr Amino Acids (Clinimix -) 1,000 mls @ 42 mls/hr IV Q24H [facility] Last Admin: 04/05/19 15:28 Dose: 42 mls/hr Melatonin (Melatonin) 10 mg PO HS [facility] Last Admin: 04/05/19 21:20 Dose: 10 mg Metoprolol Succinate (Toprol Xl -) 50 mg PO DAILY [facility] Last Admin: 04/06/19 10:16 Dose: 50 mg Nystatin (Nystatin Oral Suspension -) 500,000 units PO TID [facility] Last Admin: 04/06/19 06:30 Dose: 500,000 units Pantoprazole Sodium (Protonix Iv) 20 mg IVPUSH DAILY [facility] Last Admin: 04/06/19 10:16 Dose: 20 mg Polyethylene Glycol (Miralax (For Daily Use) -) 17 gm PO DAILY [facility] Last Admin: 04/06/19 10:38 Dose: Not Given Senna (Senna -) 1 tab PO HS [facility] Last Admin: 04/05/19 21:19 Dose: 1 tab Tiotropium [place] (Spiriva Respimat) 2 puff IH DAILY [facility] Last Admin: 04/06/19 10:18 Dose: 2 puff - Objective Vital Signs: Vital Signs Temperature 97.4 F L 04/06/19 01:58 Pulse Rate 90 04/06/19 01:58 Respiratory Rate 18 04/06/19 01:58 Blood Pressure 146/71 04/06/19 01:58 O2 Sat by Pulse Oximetry (%) 98 04/05/19 21:00 Constitutional: Yes: Calm, Cachectic, Mild Distress Eyes: Yes: Conjunctiva Clear, EOM Intact HENT: Yes: Atraumatic, Normocephalic Neck: Yes: Supple, Trachea Midline Cardiovascular: Yes: Regular Rate and Rhythm Respiratory: Yes: Regular, CTA Bilaterally, On Nasal O2 Gastrointestinal: Yes: Normal Bowel Sounds, Soft ...Rectal Exam: Yes: Deferred Genitourinary: Yes: WNL Breast(s): Yes: WNL Musculoskeletal: Yes: Muscle Weakness Edema: No Peripheral Pulses WNL: Yes Peripheral Pulses: Left Radial: 2+, Right Radial: 2+ Integumentary: Yes: WNL Neurological: Yes: Unsteady Gait, Weakness ...Motor Strength: LUE (muscle weakness), LLE (muscle weakness), RUE (muscle weakness), RLE (muscle weakness) Psychiatric: Yes: Alert Labs: CBC, BMP 04/06/19 07:28 04/06/19 07:28 - ....Imaging Other: Report Reviewed (lab data reviewed) Problem List - Problems (1) AAA (abdominal aortic aneurysm) Code(s): I71.4 - ABDOMINAL AORTIC ANEURYSM, WITHOUT RUPTURE (2) Failure to thrive Code(s): [id number] - (3) Abnormal weight loss Code(s): R63.4 - ABNORMAL WEIGHT LOSS (4) Cachexia Code(s): R64 - CACHEXIA (5) Dehydration Code(s): E86.0 - DEHYDRATION (6) Acute hypokalemia Code(s): E87.6 - HYPOKALEMIA (7) Debility Code(s): R53.81 - OTHER MALAISE (8) Leukocytosis Code(s): D72.829 - ELEVATED WHITE BLOOD CELL COUNT, UNSPECIFIED (9) Swollen tongue Code(s): R22.0 - LOCALIZED SWELLING, MASS AND LUMP, HEAD (10) Hypoalbuminemia Code(s): E88.09 - OTH DISORDERS OF PLASMA-PROTEIN METABOLISM, NEC (11) Hypoproteinemia Code(s): E77.8 - OTHER DISORDERS OF GLYCOPROTEIN METABOLISM (12) Anemia Code(s): D64.9 - ANEMIA, UNSPECIFIED (13) Hypokalemia Code(s): E87.6 - HYPOKALEMIA Assessment/Plan Assessment/plan: acute UTI, acute Pseudomonas infection, acute oral thrush, acute generalized muscle weakness, acute anemia, acute hypokalemia, acute anorexia, acute severe malnutrition, acute cachexia, acute abnormal weight loss ; IV Clinimix, IV Lipids, DVT prophylaxis, fall precautions, aspiration precautions, oxygen 2L/min via nasal cannula, physical therapy, IV Ceftazidime as per ID.
[2019-04-06] MEDS: KCL 10 MEQ IVPB 10 MEQ/100 ML INFUS.BAG IVPB SCH ×3 (12:51→17:22)
[2019-04-06] MEDS: AMINO ACIDS 4.25%/D5W 1,000 ML IV SCH (16:00)
[2019-04-06] MEDS ORDERED: PT OWN MED DRAWER 7, Y5N ONE (22:24)
[2019-04-06] MEDS: MELATONIN 5 MG TABLETS PO SCH (22:26)
[2019-04-06] MEDS: SENNOSIDES 8.6MG TABLET (FP) PO SCH ×2 (22:26→22:40)
[2019-04-07] MEDS: FAT EMULSION/OLIVE/SOY/PHOSPHO 250 ML IV SCH (00:42)
[2019-04-07] MEDS: DOCUSATE SODIUM 100 MG CAPSULE (FP) PO SCH ×3 (05:34→22:17)
[2019-04-07] MEDS: NYSTATIN 500,000 UNITS/5 ML SUSPENSION PO SCH ×3 (05:48→22:17)
[2019-04-07] MEDS ORDERED: cefTAZidime PENTAHYDRATE 1 GM VIAL (RESTRICTED TO ID) ONE ×2 (09:17→22:11)
[2019-04-07] MEDS ORDERED: DEXTROSE 5%-WATER - 50 ML IVPB ONE ×2 (09:18→22:12)
[2019-04-07] MEDS: ENOXAPARIN NA (PORCINE) 30 MG/0.3 ML DISP.SYRIN SQ SCH (09:28)
[2019-04-07] MEDS: TIOTROPIUM BROMIDE 2.5 MCG (SPIRIVA) RESPIMAT INHALER IH SCH (09:28)
[2019-04-07] MEDS: CEFTAZIDIME PENTAHYDRATE 1 GM in DEXTROSE 5%-WATER - 50 ML IVPB SCH ×2 (09:28→22:18)
[2019-04-07] MEDS: PANTOPRAZOLE SODIUM 40 MG VIAL IVPUSH SCH (09:30)
[2019-04-07] MEDS: POLYETHYLENE GLYCOL 3350 119 GM BTL PO SCH ×2 (09:31→14:48)
[2019-04-07 09:38] LABS: BASO % 0.7 % (0-2.0); EOS % 1.5 % (0-4.5); HEMATOCRIT 30.6 % (32.4-45.2); HEMOGLOBIN 10.2 GM/dL (10.7-15.3); LYMPH % 17.9 % (8-40); MCH 29.5 pg (25.7-33.7); MCHC 33.4 g/dl (32.0-36.0); MEAN CELL VOLUME 88.4 fl (80-96); MONO % 4.5 % (3.8-10.2); NEUT % 75.4 % (42.8-82.8); PLATELET COUNT 231 K/MM3 (134-434); RBC 3.45 M/mm3 (3.60-5.2); RDW 17.5 % (11.6-15.6); WHITE BLOOD COUNT 13.8 K/mm3 (4.0-10.0)
--- NOTE | 2019-04-07 09:46 | PN ---
Progress Note, Physician Chief Complaint: Patient seen and examined at the bedside, no acute events from last night, improved appetite, feeling stronger today. History of Present Illness: This 84 yr old w/f with PMH of AAA, HTN, COPD, and depression admitted via ER with an acute generalized muscle weakness, severe malnutrition, abnormal weight loss (40 lbs within past 6 mo), cachexia, acute UTI, anorexia, debility, failure to thrive, acute oral thrush, and acute dehydration. - Current Medication List Current Medications: Active Medications Acetaminophen (Tylenol -) 650 mg PO Q6H PRN PRN Reason: MODERATE PAIN Last Admin: 04/05/19 20:32 Dose: 650 mg Albuterol/Ipratropium (Duoneb -) 1 amp NEB Q6H PRN PRN Reason: SHORTNESS OF BREATH Docusate Sodium (Colace -) 100 mg PO TID [facility] Last Admin: 04/07/19 05:34 Dose: Not Given Enoxaparin Sodium (Lovenox -) 30 mg SQ DAILY [facility] Last Admin: 04/07/19 09:28 Dose: 30 mg Fat Emulsion-[place] Oil/Soybean Oil (Clinolipid 20% Iv Fat Emulsion) 250 mls @ 20.833 mls/hr IV DAILY@2200 [facility] Last Admin: 04/07/19 00:42 Dose: 20.833 mls/hr Ceftazidime 1 gm/ Dextrose 50 mls @ 100 mls/hr IVPB BID [facility]; Protocol Last Admin: 04/07/19 09:28 Dose: 100 mls/hr Amino Acids (Clinimix -) 1,000 mls @ 42 mls/hr IV Q24H [facility] Last Admin: 04/06/19 16:00 Dose: 42 mls/hr Melatonin (Melatonin) 10 mg PO HS [facility] Last Admin: 04/06/19 22:26 Dose: 10 mg Metoprolol Succinate (Toprol Xl -) 50 mg PO DAILY [facility] Last Admin: 04/07/19 09:28 Dose: 50 mg Nystatin (Nystatin Oral Suspension -) 500,000 units PO TID [facility] Last Admin: 04/07/19 05:48 Dose: 500,000 units Pantoprazole Sodium (Protonix Iv) 20 mg IVPUSH DAILY [facility] Last Admin: 04/07/19 09:30 Dose: 20 mg Polyethylene Glycol (Miralax (For Daily Use) -) 17 gm PO DAILY [facility] Last Admin: 04/07/19 09:31 Dose: 17 grams Senna (Senna -) 1 tab PO HS [facility] Last Admin: 04/06/19 22:40 Dose: Not Given Tiotropium [place] (Spiriva Respimat) 2 puff IH DAILY [facility] Last Admin: 04/07/19 09:28 Dose: 2 puff - Objective Vital Signs: Vital Signs Temperature 97.8 F 04/07/19 05:00 Pulse Rate 81 04/07/19 05:00 Respiratory Rate 18 04/07/19 05:00 Blood Pressure 141/63 04/07/19 05:00 O2 Sat by Pulse Oximetry (%) 97 04/06/19 21:00 Constitutional: Yes: No Distress, Calm, Cachectic, Thin Eyes: Yes: Conjunctiva Clear, EOM Intact HENT: Yes: Atraumatic, Normocephalic, Other (dental caries) Neck: Yes: Supple, Trachea Midline Cardiovascular: Yes: Regular Rate and Rhythm Respiratory: Yes: Regular, CTA Bilaterally, Cough Gastrointestinal: Yes: Normal Bowel Sounds, Soft ...Rectal Exam: Yes: Deferred Genitourinary: Yes: WNL Breast(s): Yes: WNL Musculoskeletal: Yes: Muscle Weakness Extremities: Yes: Other (generalized muscle weakness) Edema: No Peripheral Pulses WNL: Yes Peripheral Pulses: Left Radial: 2+, Right Radial: 2+ Integumentary: Yes: WNL Neurological: Yes: Unsteady Gait, Weakness Psychiatric: Yes: WNL - ....Imaging Other: Report Reviewed (lab data reviewed) Problem List - Problems (1) AAA (abdominal aortic aneurysm) Code(s): I71.4 - ABDOMINAL AORTIC ANEURYSM, WITHOUT RUPTURE (2) Failure to thrive Code(s): [id number] - (3) Abnormal weight loss Code(s): R63.4 - ABNORMAL WEIGHT LOSS (4) Cachexia Code(s): R64 - CACHEXIA (5) Dehydration Code(s): E86.0 - DEHYDRATION (6) Acute hypokalemia Code(s): E87.6 - HYPOKALEMIA (7) Debility Code(s): R53.81 - OTHER MALAISE (8) Leukocytosis Code(s): D72.829 - ELEVATED WHITE BLOOD CELL COUNT, UNSPECIFIED (9) Swollen tongue Code(s): R22.0 - LOCALIZED SWELLING, MASS AND LUMP, HEAD (10) Hypoalbuminemia Code(s): E88.09 - OTH DISORDERS OF PLASMA-PROTEIN METABOLISM, NEC (11) Hypoproteinemia Code(s): E77.8 - OTHER DISORDERS OF GLYCOPROTEIN METABOLISM (12) Anemia Code(s): D64.9 - ANEMIA, UNSPECIFIED (13) Hypokalemia Code(s): E87.6 - HYPOKALEMIA Assessment/Plan Assessment/plan: acute generalized muscle weakness, acute UTI, acute Pseudomonas infection, acute cachexia, acute abnormal weight loss, failure to thrive, acute hypokalemia, acute anemia, acute severe malnutrition, acute neutrophilic leukocytosis, acute oral thrush, swollen tongue diminishing in size ; IV Clinimix, IV Lipids, DVT prophylaxis, out of bed in chair as tolerated, oxygen 2L/min via nasal cannula, physical therapy, fall precautions, aspiration precautions, IV Ceftazidime as per ID.
[2019-04-07 09:59] LABS: ALBUMIN 1.8 g/dl (3.4-5.0); BILIRUBIN,TOTAL 0.3 mg/dL (0.2-1); BLOOD UREA NITROGEN 14.4 mg/dL (7-18); CALCIUM 7.7 mg/dL (8.5-10.1); CREATININE 0.3 mg/dL (0.55-1.3); POTASSIUM 3.2 mmol/L (3.5-5.1); TOT PROT 5.6 g/dl (6.4-8.2)
[2019-04-07] MEDS ORDERED: NYSTATIN 500,000 UNITS/5 ML SUSPENSION PO SCH (10:00)
[2019-04-07] MEDS: AMINO ACIDS 4.25%/D5W 1,000 ML IV SCH (12:14)
[2019-04-07] MEDS: KCL 10 MEQ IVPB 10 MEQ/100 ML INFUS.BAG IVPB SCH ×3 (13:37→17:29)
[2019-04-07] MEDS: D5-1/2NS+20 MEQ KCL - 20 MEQ/1,000 ML INFUS.BAG IV SCH (19:30)
[2019-04-07] MEDS: MELATONIN 5 MG TABLETS PO SCH (22:17)
[2019-04-07] MEDS: SENNOSIDES 8.6MG TABLET (FP) PO SCH (22:17)
[2019-04-08] MEDS: DOCUSATE SODIUM 100 MG CAPSULE (FP) PO SCH ×3 (05:17→21:36)
[2019-04-08 08:02] LABS: BASO % 1.2 % (0-2.0); HEMATOCRIT 29.4 % (32.4-45.2); HEMOGLOBIN 9.7 GM/dL (10.7-15.3); LYMPH % 14.3 % (8-40); MCH 29.4 pg (25.7-33.7); MCHC 33.1 g/dl (32.0-36.0); MEAN CELL VOLUME 88.6 fl (80-96); MEAN PLT VOLUME 9.5 fl (7.5-11.1); MONO % 7.5 % (3.8-10.2); PLATELET COUNT 258 K/MM3 (134-434); RBC 3.32 M/mm3 (3.60-5.2); RDW 16.8 % (11.6-15.6)
[2019-04-08 08:45] LABS: ALBUMIN 1.8 g/dl (3.4-5.0); BILIRUBIN,TOTAL 0.4 mg/dL (0.2-1); BLOOD UREA NITROGEN 9.8 mg/dL (7-18); CALCIUM 7.6 mg/dL (8.5-10.1); CREATININE 0.4 mg/dL (0.55-1.3); POTASSIUM 3.6 mmol/L (3.5-5.1); TOT PROT 5.3 g/dl (6.4-8.2)
--- NOTE | 2019-04-08 09:10 | PN ---
Progress Note, Physician Chief Complaint: Patient seen and examined at the bedside, no acute events from last night, appetite fair, no labored breathing, no chest pain, generalized muscle weakness. History of Present Illness: This 84 yr old with PMH of AAA, HTN, HLD, and depression admitted via ER with an acute generalized muscle weakness, acute dehydration, acute abnormal weight loss (40 lbs within past 6 mo), acute severe malnutrition, acute cachexia, acute anorexia, failure to thrive, acute debility, acute oral thrush, and an acute UTI. - Current Medication List Current Medications: Active Medications Acetaminophen (Tylenol -) 650 mg PO Q6H PRN PRN Reason: MODERATE PAIN Last Admin: 04/05/19 20:32 Dose: 650 mg Albuterol/Ipratropium (Duoneb -) 1 amp NEB Q6H PRN PRN Reason: SHORTNESS OF BREATH Docusate Sodium (Colace -) 100 mg PO TID [facility] Last Admin: 04/08/19 05:17 Dose: Not Given Enoxaparin Sodium (Lovenox -) 30 mg SQ DAILY [facility] Last Admin: 04/07/19 09:28 Dose: 30 mg Ceftazidime 1 gm/ Dextrose 50 mls @ 100 mls/hr IVPB BID [facility]; Protocol Last Admin: 04/07/19 22:18 Dose: 100 mls/hr Potassium Chloride/Dextrose/Sod Cl (D5-1/2ns+20 Meq Kcl -) 20 meq in 1,000 mls @ 42 mls/hr IV ASDIR [facility] Last Admin: 04/07/19 19:30 Dose: 42 mls/hr Melatonin (Melatonin) 10 mg PO [facility] Last Admin: 04/07/19 22:17 Dose: 10 mg Metoprolol Succinate (Toprol Xl -) 50 mg PO DAILY [facility] Last Admin: 04/07/19 09:28 Dose: 50 mg Nystatin (Nystatin Oral Suspension -) 100,000 units PO BID [facility] Last Admin: 04/07/19 22:17 Dose: 100,000 units Pantoprazole Sodium (Protonix Iv) 20 mg IVPUSH DAILY [facility] Last Admin: 04/07/19 09:30 Dose: 20 mg Polyethylene Glycol (Miralax (For Daily Use) -) 17 gm PO DAILY [facility] Last Admin: 04/07/19 14:48 Dose: Not Given Senna (Senna -) 1 tab PO [facility] Last Admin: 04/07/19 22:17 Dose: Not Given Tiotropium [place] (Spiriva Respimat) 2 puff IH DAILY [facility] Last Admin: 04/07/19 09:28 Dose: 2 puff - Objective Vital Signs: Vital Signs Temperature 97.4 F L 04/08/19 06:00 Pulse Rate 81 04/08/19 06:00 Respiratory Rate 18 04/08/19 06:00 Blood Pressure 144/74 04/08/19 06:00 O2 Sat by Pulse Oximetry (%) 97 04/07/19 21:00 Constitutional: Yes: No Distress, Calm, Cachectic, Thin Eyes: Yes: Conjunctiva Clear, EOM Intact HENT: Yes: Atraumatic, Normocephalic Neck: Yes: Supple, Trachea Midline Cardiovascular: Yes: Regular Rate and Rhythm Respiratory: Yes: Regular, CTA Bilaterally Gastrointestinal: Yes: Normal Bowel Sounds, Soft ...Rectal Exam: Yes: Deferred Genitourinary: Yes: WNL Breast(s): Yes: WNL Musculoskeletal: Yes: Muscle Weakness Extremities: Yes: Other (generalized muscle weakness) Edema: No Peripheral Pulses WNL: Yes Peripheral Pulses: Left Radial: 2+, Right Radial: 2+, Left Doralis Pedis: 2+, Right Dorsalis Pedis: 2+, Left Femoral: 2+, Right Femoral: 2+ Integumentary: Yes: WNL Neurological: Yes: Alert, Oriented, Unsteady Gait, Weakness ...Motor Strength: LUE (muscle weakness), LLE (muscle weakness), RUE (muscle weakness), RLE (muscle weakness) Psychiatric: Yes: WNL Labs: CBC, BMP 04/08/19 07:20 04/08/19 07:20 - ....Imaging Other: Report Reviewed (Lab data reviewed) Problem List - Problems (1) AAA (abdominal aortic aneurysm) Code(s): I71.4 - ABDOMINAL AORTIC ANEURYSM, WITHOUT RUPTURE (2) Failure to thrive Code(s): [id number] - (3) Abnormal weight loss Code(s): R63.4 - ABNORMAL WEIGHT LOSS (4) Cachexia Code(s): R64 - CACHEXIA (5) Dehydration Code(s): E86.0 - DEHYDRATION (6) Acute hypokalemia Code(s): E87.6 - HYPOKALEMIA (7) Debility Code(s): R53.81 - OTHER MALAISE (8) Leukocytosis Code(s): D72.829 - ELEVATED WHITE BLOOD CELL COUNT, UNSPECIFIED (9) Swollen tongue Code(s): R22.0 - LOCALIZED SWELLING, MASS AND LUMP, HEAD (10) Hypoalbuminemia Code(s): E88.09 - OTH DISORDERS OF PLASMA-PROTEIN METABOLISM, NEC (11) Hypoproteinemia Code(s): E77.8 - OTHER DISORDERS OF GLYCOPROTEIN METABOLISM (12) Anemia Code(s): D64.9 - ANEMIA, UNSPECIFIED (13) Hypokalemia Code(s): E87.6 - HYPOKALEMIA Assessment/Plan Assessment/plan: acute generalized muscle weakness, acute severe malnutrition, acute cachexia, acute anorexia, acute abnormal weight loss, acute oral thrush, acute dehydration, acute UTI, acute Pseudomonas infection, acute hypokalemia, acute anemia, acute neutrophilic leukocytosis; IV fluids, IV Ceftazidime, DVT prophylaxis, physical therapy, oxygen 2L/min via nasal cannula, fall precautions , and aspiration precautions.
[2019-04-08] MEDS ORDERED: cefTAZidime PENTAHYDRATE 1 GM VIAL (RESTRICTED TO ID) ONE ×2 (09:47→21:31)
[2019-04-08] MEDS ORDERED: DEXTROSE 5%-WATER - 50 ML IVPB ONE ×2 (09:47→21:31)
[2019-04-08] MEDS ORDERED: PT OWN MED DRAWER 7, Y5N ONE (09:48)
[2019-04-08] MEDS: NYSTATIN 500,000 UNITS/5 ML SUSPENSION PO SCH ×2 (10:12→21:37)
[2019-04-08] MEDS: ENOXAPARIN NA (PORCINE) 30 MG/0.3 ML DISP.SYRIN SQ SCH (10:12)
[2019-04-08] MEDS: PANTOPRAZOLE SODIUM 40 MG VIAL IVPUSH SCH (10:12)
[2019-04-08] MEDS: POLYETHYLENE GLYCOL 3350 119 GM BTL PO SCH (10:13)
[2019-04-08] MEDS: CEFTAZIDIME PENTAHYDRATE 1 GM in DEXTROSE 5%-WATER - 50 ML IVPB SCH ×2 (10:13→21:36)
[2019-04-08] MEDS: TIOTROPIUM BROMIDE 2.5 MCG (SPIRIVA) RESPIMAT INHALER IH SCH (10:13)
--- NOTE | 2019-04-08 11:58 | PN ---
Progress Note (short form) - Note Progress Note: more alert today nausea resolved still with limited appetite has not ambulated yet with PT Vital Signs Period Temp Pulse Resp BP Sys/Moran Pulse Ox Last 24 Hr 97.4 F-99.2 F 81-88 18-19 135-156/55-78 97 cor-rrr lungs clear abd soft,nt ext no edema CBC, BMP 04/08/19 07:20 04/08/19 07:20 Microbiology 04/02/19 16:30 Blood - Peripheral Venous Blood Culture - Final NO GROWTH AFTER 5 DAYS INCUBATION 04/02/19 16:30 Blood - Peripheral Venous Blood Culture - Final NO GROWTH AFTER 5 DAYS INCUBATION 04/02/19 01:00 Urine - Urine Clean Catch Urine Culture - Final Pseudomonas Aeruginosa a/p failure to thrive inoperable AAA DNR/DNI leukocytosis/pyuria-pseudomonas uti- resolving of fortaz- day #4 of 7- would avoid quinolones in this patient with inoperable AAA fecal retention please call back if needed
[2019-04-08] MEDS: D5-1/2NS+20 MEQ KCL - 20 MEQ/1,000 ML INFUS.BAG IV SCH (14:54)
[2019-04-08] MEDS: MELATONIN 5 MG TABLETS PO SCH (21:37)
[2019-04-08] MEDS: SENNOSIDES 8.6MG TABLET (FP) PO SCH (21:38)
[2019-04-08] MEDS: ACETAMINOPHEN 325 MG TABLET (FP) PO PRN (21:44)
[2019-04-09] MEDS: DOCUSATE SODIUM 100 MG CAPSULE (FP) PO SCH ×3 (05:29→21:21)
[2019-04-09 08:33] LABS: BASO % 3.5 % (0-2.0); EOS % 2.6 % (0-4.5); HEMATOCRIT 29.4 % (32.4-45.2); HEMOGLOBIN 9.5 GM/dL (10.7-15.3); LYMPH % 28.7 % (8-40); MCH 28.9 pg (25.7-33.7); MCHC 32.4 g/dl (32.0-36.0); MEAN CELL VOLUME 89.3 fl (80-96); MEAN PLT VOLUME 9.4 fl (7.5-11.1); MONO % 7.9 % (3.8-10.2); NEUT % 57.3 % (42.8-82.8); PLATELET COUNT 291 K/MM3 (134-434); RBC 3.29 M/mm3 (3.60-5.2); RDW 17.4 % (11.6-15.6); WHITE BLOOD COUNT 7.8 K/mm3 (4.0-10.0)
[2019-04-09 08:54] LABS: ALBUMIN 1.7 g/dl (3.4-5.0); BILIRUBIN,TOTAL 0.4 mg/dL (0.2-1); BLOOD UREA NITROGEN 8.2 mg/dL (7-18); CALCIUM 7.8 mg/dL (8.5-10.1); CREATININE 0.3 mg/dL (0.55-1.3); POTASSIUM 3.6 mmol/L (3.5-5.1); TOT PROT 5.3 g/dl (6.4-8.2)
[2019-04-09] MEDS ORDERED: cefTAZidime PENTAHYDRATE 1 GM VIAL (RESTRICTED TO ID) ONE ×2 (09:41→21:13)
[2019-04-09] MEDS ORDERED: DEXTROSE 5%-WATER - 50 ML IVPB ONE ×2 (09:42→21:13)
[2019-04-09] MEDS: TIOTROPIUM BROMIDE 2.5 MCG (SPIRIVA) RESPIMAT INHALER IH SCH (09:50)
[2019-04-09] MEDS: NYSTATIN 500,000 UNITS/5 ML SUSPENSION PO SCH ×2 (09:51→21:23)
[2019-04-09] MEDS: PANTOPRAZOLE SODIUM 40 MG VIAL IVPUSH SCH (09:52)
[2019-04-09] MEDS: POLYETHYLENE GLYCOL 3350 119 GM BTL PO SCH (09:52)
[2019-04-09] MEDS: ENOXAPARIN NA (PORCINE) 30 MG/0.3 ML DISP.SYRIN SQ SCH (09:52)
[2019-04-09] MEDS: CEFTAZIDIME PENTAHYDRATE 1 GM in DEXTROSE 5%-WATER - 50 ML IVPB SCH ×2 (09:52→21:28)
--- NOTE | 2019-04-09 10:34 | PN ---
Progress Note, Physician Chief Complaint: Patient seen and examined at the bedside, no acute events from last night, generalized muscle weakness gradually diminishing, fair appetite, no labored breathing, no chest pain, no nausea. History of Present Illness: This 84 yr old w/f with PMH of AAA,HTN, COPD, and depression admitted via ER with an acute generalized muscle weakness, acute abnormal weight loss (40 lbs within past 6 mo), acute severe malnutrition, acute cachexia, acute anorexia, failure to thrive, acute debility, acute oral thrush, an acute UTI, and an acute Pseudomonas infection. - Current Medication List Current Medications: Active Medications Acetaminophen (Tylenol -) 650 mg PO Q6H PRN PRN Reason: MODERATE PAIN Last Admin: 04/08/19 21:44 Dose: 650 mg Albuterol/Ipratropium (Duoneb -) 1 amp NEB Q6H PRN PRN Reason: SHORTNESS OF BREATH Docusate Sodium (Colace -) 100 mg PO TID [facility] Last Admin: 04/09/19 05:29 Dose: Not Given Enoxaparin Sodium (Lovenox -) 30 mg SQ DAILY [facility] Last Admin: 04/09/19 09:52 Dose: 30 mg Ceftazidime 1 gm/ Dextrose 50 mls @ 100 mls/hr IVPB BID [facility]; Protocol Last Admin: 04/09/19 09:52 Dose: 100 mls/hr Potassium Chloride/Dextrose/Sod Cl (D5-1/2ns+20 Meq Kcl -) 20 meq in 1,000 mls @ 42 mls/hr IV ASDIR [facility] Last Admin: 04/08/19 14:54 Dose: 42 mls/hr Melatonin (Melatonin) 10 mg PO HS [facility] Last Admin: 04/08/19 21:37 Dose: 10 mg Metoprolol Succinate (Toprol Xl -) 50 mg PO DAILY [facility] Last Admin: 04/09/19 09:51 Dose: 50 mg Nystatin (Nystatin Oral Suspension -) 100,000 units PO BID [facility] Last Admin: 04/09/19 09:51 Dose: 100,000 units Pantoprazole Sodium (Protonix Iv) 20 mg IVPUSH DAILY [facility] Last Admin: 04/09/19 09:52 Dose: 20 mg Polyethylene Glycol (Miralax (For Daily Use) -) 17 gm PO DAILY [facility] Last Admin: 03/03/20 09:52 Dose: Not Given Senna (Senna -) 1 tab PO HS [facility] Last Admin: 04/08/19 21:38 Dose: Not Given Tiotropium [place] (Spiriva Respimat) 2 puff IH DAILY [facility] Last Admin: 04/09/19 09:50 Dose: 2 puff - Objective Vital Signs: Vital Signs Temperature 98.0 F 04/09/19 06:00 Pulse Rate 93 H 04/09/19 06:00 Respiratory Rate 16 04/09/19 06:00 Blood Pressure 153/56 L 04/09/19 06:00 O2 Sat by Pulse Oximetry (%) 97 04/08/19 21:00 Constitutional: Yes: No Distress, Calm, Cachectic, Thin Eyes: Yes: Conjunctiva Clear, EOM Intact HENT: Yes: Atraumatic, Normocephalic Neck: Yes: Supple, Trachea Midline Respiratory: Yes: Regular, CTA Bilaterally Gastrointestinal: Yes: Normal Bowel Sounds, Soft ...Rectal Exam: Yes: Deferred Genitourinary: Yes: WNL Breast(s): Yes: WNL Musculoskeletal: Yes: Muscle Weakness Extremities: Yes: Other (generalized muscle weakness) Edema: No Peripheral Pulses WNL: Yes Peripheral Pulses: Left Radial: 2+, Right Radial: 2+ Neurological: Yes: Weakness ...Motor Strength: LUE (muscle weakness), LLE (muscle weakness), RUE (muscle weakness), RLE (muscle weakness) Psychiatric: Yes: WNL Labs: CBC, BMP 04/09/19 07:47 04/09/19 07:47 - ....Imaging Other: Report Reviewed (Lab data reviewed) Problem List - Problems (1) AAA (abdominal aortic aneurysm) Code(s): I71.4 - ABDOMINAL AORTIC ANEURYSM, WITHOUT RUPTURE (2) Failure to thrive Code(s): [id number] - (3) Abnormal weight loss Code(s): R63.4 - ABNORMAL WEIGHT LOSS (4) Cachexia Code(s): R64 - CACHEXIA (5) Dehydration Code(s): E86.0 - DEHYDRATION (6) Acute hypokalemia Code(s): E87.6 - HYPOKALEMIA (7) Debility Code(s): R53.81 - OTHER MALAISE (8) Leukocytosis Code(s): D72.829 - ELEVATED WHITE BLOOD CELL COUNT, UNSPECIFIED (9) Swollen tongue Code(s): R22.0 - LOCALIZED SWELLING, MASS AND LUMP, HEAD (10) Hypoalbuminemia Code(s): E88.09 - OTH DISORDERS OF PLASMA-PROTEIN METABOLISM, NEC (11) Hypoproteinemia Code(s): E77.8 - OTHER DISORDERS OF GLYCOPROTEIN METABOLISM (12) Anemia Code(s): D64.9 - ANEMIA, UNSPECIFIED (13) Hypokalemia Code(s): E87.6 - HYPOKALEMIA Assessment/Plan Assessment/plan: acute generalized muscle weakness, acute debility, acute cachexia, acute anorexia, acute UTI, acute Pseudomonas infection, acute abnormal weight loss, acute severe malnutrition, acute dehydration, acute anemia , acute hypokalemia, s/p neutrophilic leukocytosis; IV fluids, IV Ceftazidime as per ID, physical therapy, DVT prophylaxis, fall precautions, DNR/DNI, oxygen 2L/min via nasal cannula, fall precautions, and aspiration precautions.
[2019-04-09] MEDS: D5-1/2NS+20 MEQ KCL - 20 MEQ/1,000 ML INFUS.BAG IV SCH (17:25)
[2019-04-09] MEDS: MELATONIN 5 MG TABLETS PO SCH (21:23)
[2019-04-09] MEDS: SENNOSIDES 8.6MG TABLET (FP) PO SCH (21:24)
[2019-04-10] MEDS: DOCUSATE SODIUM 100 MG CAPSULE (FP) PO SCH ×3 (06:33→21:55)
[2019-04-10 08:02] LABS: BASO % 1.2 % (0-2.0); EOS % 1.2 % (0-4.5); HEMATOCRIT 32.4 % (32.4-45.2); HEMOGLOBIN 10.6 GM/dL (10.7-15.3); LYMPH % 26.5 % (8-40); MCH 29.1 pg (25.7-33.7); MCHC 32.9 g/dl (32.0-36.0); MEAN CELL VOLUME 88.6 fl (80-96); MEAN PLT VOLUME 8.8 fl (7.5-11.1); MONO % 7.5 % (3.8-10.2); NEUT % 63.6 % (42.8-82.8); PLATELET COUNT 331 K/MM3 (134-434); RBC 3.66 M/mm3 (3.60-5.2); RDW 17.4 % (11.6-15.6); WHITE BLOOD COUNT 7.5 K/mm3 (4.0-10.0)
[2019-04-10 09:13] LABS: ALBUMIN 1.9 g/dl (3.4-5.0); BILIRUBIN,TOTAL 0.3 mg/dL (0.2-1); BLOOD UREA NITROGEN 6.4 mg/dL (7-18); CALCIUM 8.4 mg/dL (8.5-10.1); CREATININE 0.4 mg/dL (0.55-1.3); POTASSIUM 3.9 mmol/L (3.5-5.1); TOT PROT 5.9 g/dl (6.4-8.2)
--- NOTE | 2019-04-10 10:39 | PN ---
Progress Note, Physician Chief Complaint: Patient seen and examined at the bedside, no acute events from last night, fair appetite, had one episode of loose stool this morning, gradually getting stronger, no labored breathing, no chest or abdominal pain, no nausea. History of Present Illness: This 84 yr old w/f with PMH of AAA, HTN, COPD, and depression admitted via ER with an acute generalized muscle weakness, acute abnormal weight loss (40 lbs within past 6 mo), acute debility, acute Pseudomonas infection, acute UTI, failure to thrive, acute cachexia, acute severe malnutrition, acute anorexia, acute dehydration, acute oral thrush, and acute swelling of tongue. - Current Medication List Current Medications: Active Medications Acetaminophen (Tylenol -) 650 mg PO Q6H PRN PRN Reason: MODERATE PAIN Last Admin: 04/08/19 21:44 Dose: 650 mg Albuterol/Ipratropium (Duoneb -) 1 amp NEB Q6H PRN PRN Reason: SHORTNESS OF BREATH Docusate Sodium (Colace -) 100 mg PO TID [facility] Last Admin: 04/10/19 06:33 Dose: Not Given Enoxaparin Sodium (Lovenox -) 30 mg SQ DAILY [facility] Last Admin: 04/09/19 09:52 Dose: 30 mg Ceftazidime 1 gm/ Dextrose 50 mls @ 100 mls/hr IVPB BID [facility]; Protocol Last Admin: 04/09/19 21:28 Dose: 100 mls/hr Potassium Chloride/Dextrose/Sod Cl (D5-1/2ns+20 Meq Kcl -) 20 meq in 1,000 mls @ 42 mls/hr IV ASDIR [facility] Last Admin: 04/09/19 17:25 Dose: 42 mls/hr Melatonin (Melatonin) 10 mg PO HS [facility] Last Admin: 04/09/19 21:23 Dose: 10 mg Metoprolol Succinate (Toprol Xl -) 50 mg PO DAILY [facility] Last Admin: 04/09/19 09:51 Dose: 50 mg Nystatin (Nystatin Oral Suspension -) 100,000 units PO BID [facility] Last Admin: 04/09/19 21:23 Dose: 100,000 units Pantoprazole Sodium (Protonix Iv) 20 mg IVPUSH DAILY [facility] Last Admin: 04/09/19 09:52 Dose: 20 mg Polyethylene Glycol (Miralax (For Daily Use) -) 17 gm PO DAILY [facility] Last Admin: 04/09/19 09:52 Dose: Not Given Senna (Senna -) 1 tab PO HS [facility] Last Admin: 04/09/19 21:24 Dose: Not Given Tiotropium [place] (Spiriva Respimat) 2 puff IH DAILY [facility] Last Admin: 04/09/19 09:50 Dose: 2 puff - Objective Vital Signs: Vital Signs Temperature 97.4 F L 04/10/19 06:00 Pulse Rate 81 04/10/19 06:00 Respiratory Rate 18 04/10/19 06:00 Blood Pressure 140/77 04/10/19 06:00 O2 Sat by Pulse Oximetry (%) 96 04/09/19 21:00 Constitutional: Yes: Well Nourished, No Distress, Calm, Cachectic, Thin Eyes: Yes: Conjunctiva Clear, EOM Intact HENT: Yes: Atraumatic, Normocephalic Neck: Yes: Supple, Trachea Midline Cardiovascular: Yes: Regular Rate and Rhythm Respiratory: Yes: Regular, CTA Bilaterally Gastrointestinal: Yes: Normal Bowel Sounds, Soft ...Rectal Exam: Yes: Deferred Genitourinary: Yes: WNL Breast(s): Yes: WNL Musculoskeletal: Yes: Muscle Weakness Extremities: Yes: Other (generalized muscle weakness) Edema: No Peripheral Pulses WNL: Yes Peripheral Pulses: Left Radial: 2+, Right Radial: 2+, Left Doralis Pedis: 2+, Right Dorsalis Pedis: 2+, Left Femoral: 2+, Right Femoral: 2+ Integumentary: Yes: WNL Neurological: Yes: Unsteady Gait, Weakness ...Motor Strength: LUE (muscle weakness), LLE (muscle weakness), RUE (muscle weakness), RLE (muscle weakness) Psychiatric: Yes: Alert, Oriented Labs: CBC, BMP 04/10/19 07:45 04/10/19 07:45 - ....Imaging Other: Report Reviewed (lab data reviewed) Problem List - Problems (1) AAA (abdominal aortic aneurysm) Code(s): I71.4 - ABDOMINAL AORTIC ANEURYSM, WITHOUT RUPTURE (2) Failure to thrive Code(s): [id number] - (3) Abnormal weight loss Code(s): R63.4 - ABNORMAL WEIGHT LOSS (4) Cachexia Code(s): R64 - CACHEXIA (5) Dehydration Code(s): E86.0 - DEHYDRATION (6) Acute hypokalemia Code(s): E87.6 - HYPOKALEMIA (7) Debility Code(s): R53.81 - OTHER MALAISE (8) Leukocytosis Code(s): D72.829 - ELEVATED WHITE BLOOD CELL COUNT, UNSPECIFIED (9) Swollen tongue Code(s): R22.0 - LOCALIZED SWELLING, MASS AND LUMP, HEAD (10) Hypoalbuminemia Code(s): E88.09 - OTH DISORDERS OF PLASMA-PROTEIN METABOLISM, NEC (11) Hypoproteinemia Code(s): E77.8 - OTHER DISORDERS OF GLYCOPROTEIN METABOLISM (12) Anemia Code(s): D64.9 - ANEMIA, UNSPECIFIED (13) Hypokalemia Code(s): E87.6 - HYPOKALEMIA (14) Loose stools Code(s): R19.5 - OTHER FECAL ABNORMALITIES Assessment/Plan Assessment/plan: acute loose stool, acute generalized muscle weakness, acute debility, acute UTI, acute Pseudomonas infection, acute anorexia, acute abnormal weight loss (40 lbs within past 6 mon), acute severe malnutrition, acute cachexia, acute anemia, acute dehydration, acute oral thrush; IV fluids, IV Ceftazidime, DVT prophylaxis, physical therapy, oxygen 2L/min via nasal cannula, fall precautions, and aspiration precautions.
[2019-04-10] MEDS ORDERED: cefTAZidime PENTAHYDRATE 1 GM VIAL (RESTRICTED TO ID) ONE ×2 (10:56→21:32)
[2019-04-10] MEDS ORDERED: DEXTROSE 5%-WATER - 50 ML IVPB ONE ×2 (10:56→21:33)
[2019-04-10] MEDS ORDERED: PT OWN MED DRAWER 7, Y5N ONE (10:57)
[2019-04-10] MEDS: CEFTAZIDIME PENTAHYDRATE 1 GM in DEXTROSE 5%-WATER - 50 ML IVPB SCH ×2 (11:04→21:54)
[2019-04-10] MEDS: NYSTATIN 500,000 UNITS/5 ML SUSPENSION PO SCH ×2 (11:05→21:54)
[2019-04-10] MEDS: ENOXAPARIN NA (PORCINE) 30 MG/0.3 ML DISP.SYRIN SQ SCH (11:05)
[2019-04-10] MEDS: POLYETHYLENE GLYCOL 3350 119 GM BTL PO SCH (11:06)
[2019-04-10] MEDS: PANTOPRAZOLE SODIUM 40 MG VIAL IVPUSH SCH (11:06)
[2019-04-10] MEDS: TIOTROPIUM BROMIDE 2.5 MCG (SPIRIVA) RESPIMAT INHALER IH SCH (11:06)
[2019-04-10] MEDS: D5-1/2NS+20 MEQ KCL - 20 MEQ/1,000 ML INFUS.BAG IV SCH (17:00)
[2019-04-10] MEDS: MELATONIN 5 MG TABLETS PO SCH (21:54)
[2019-04-10] MEDS: SENNOSIDES 8.6MG TABLET (FP) PO SCH (21:55)
[2019-04-11] MEDS: DOCUSATE SODIUM 100 MG CAPSULE (FP) PO SCH ×3 (06:15→21:02)
[2019-04-11 07:54] LABS: HEMATOCRIT 32.1 % (32.4-45.2); HEMOGLOBIN 10.5 GM/dL (10.7-15.3); MCH 29.2 pg (25.7-33.7); MCHC 32.5 g/dl (32.0-36.0); MEAN CELL VOLUME 89.9 fl (80-96); MEAN PLT VOLUME 9.5 fl (7.5-11.1); PLATELET COUNT 259 K/MM3 (134-434); RBC 3.57 M/mm3 (3.60-5.2); RDW 16.5 % (11.6-15.6); WHITE BLOOD COUNT 9.5 K/mm3 (4.0-10.0)
[2019-04-11 08:47] LABS: ALBUMIN 1.7 g/dl (3.4-5.0); BILIRUBIN,TOTAL 0.6 mg/dL (0.2-1); CALCIUM 8.1 mg/dL (8.5-10.1); CREATININE 0.4 mg/dL (0.55-1.3); POTASSIUM 4.1 mmol/L (3.5-5.1); TOT PROT 5.2 g/dl (6.4-8.2)
--- NOTE | 2019-04-11 09:22 | PN ---
Progress Note, Physician Chief Complaint: Patient seen and examined at the bedside, no acute events from last night, no nausea vomiting or diarrhea. History of Present Illness: This 84 yr old w/f with PMH of AAA, HTN, depression, and COPD admitted via ER with an acute generalized muscle weakness, acute abnormal weight loss (40 lbs within past 6 mo), acute dehydration, acute UTI, acute Pseudomonas infection, acute anorexia, acute cachexia, acute severe malnutrition, acute oral thrush, acute debility, failure to thrive, and acute swelling of tongue. - Current Medication List Current Medications: Active Medications Acetaminophen (Tylenol -) 650 mg PO Q6H PRN PRN Reason: MODERATE PAIN Last Admin: 04/08/19 21:44 Dose: 650 mg Documented by: Albuterol/Ipratropium (Duoneb -) 1 amp NEB Q6H PRN PRN Reason: SHORTNESS OF BREATH Docusate Sodium (Colace -) 100 mg PO TID [facility] Last Admin: 04/11/19 06:15 Dose: Not Given Documented by: Enoxaparin Sodium (Lovenox -) 30 mg SQ DAILY [facility] Last Admin: 04/10/19 11:05 Dose: 30 mg Documented by: Ceftazidime 1 gm/ Dextrose 50 mls @ 100 mls/hr IVPB BID [facility]; Protocol Last Admin: 04/10/19 21:54 Dose: 100 mls/hr Documented by: Potassium Chloride/Dextrose/Sod Cl (D5-1/2ns+20 Meq Kcl -) 20 meq in 1,000 mls @ 42 mls/hr IV ASDIR [facility] Last Admin: 04/10/19 17:00 Dose: 42 mls/hr Documented by: Melatonin (Melatonin) 10 mg PO HS [facility] Last Admin: 04/10/19 21:54 Dose: 10 mg Documented by: Metoprolol Succinate (Toprol Xl -) 50 mg PO DAILY [facility] Last Admin: 04/10/19 11:04 Dose: 50 mg Documented by: Nystatin (Nystatin Oral Suspension -) 100,000 units PO BID [facility] Last Admin: 04/10/19 21:54 Dose: 100,000 units Documented by: Pantoprazole Sodium (Protonix Iv) 20 mg IVPUSH DAILY [facility] Last Admin: 04/10/19 11:06 Dose: 20 mg Documented by: Polyethylene Glycol (Miralax (For Daily Use) -) 17 gm PO DAILY [facility] Last Admin: 04/10/19 11:06 Dose: Not Given Documented by: Senna (Senna -) 1 tab PO HS [facility] Last Admin: 04/10/19 21:55 Dose: Not Given Documented by: Tiotropium [place] (Spiriva Respimat) 2 puff IH DAILY [facility] Last Admin: 04/10/19 11:06 Dose: 2 puff Documented by: - Objective Vital Signs: Vital Signs Temperature 98.1 F 04/11/19 06:00 Pulse Rate 107 H 04/11/19 06:00 Respiratory Rate 18 04/11/19 06:00 Blood Pressure 148/83 04/11/19 06:00 O2 Sat by Pulse Oximetry (%) 96 04/10/19 21:00 Constitutional: Yes: No Distress, Calm, Cachectic Eyes: Yes: Conjunctiva Clear, EOM Intact HENT: Yes: Atraumatic, Normocephalic Neck: Yes: Supple, Trachea Midline Cardiovascular: Yes: Regular Rate and Rhythm Respiratory: Yes: Regular, CTA Bilaterally Gastrointestinal: Yes: Normal Bowel Sounds, Soft ...Rectal Exam: Yes: Deferred Genitourinary: Yes: WNL Breast(s): Yes: WNL Musculoskeletal: Yes: Muscle Weakness Edema: No Peripheral Pulses WNL: Yes Peripheral Pulses: Left Radial: 2+, Right Radial: 2+ Integumentary: Yes: WNL Neurological: Yes: Alert, Oriented, Unsteady Gait, Weakness ...Motor Strength: LUE (muscle weakness), LLE (muscle weakness), RUE (muscle weakness), RLE (muscle weakness) Psychiatric: Yes: WNL Labs: CBC, BMP 04/11/19 07:23 04/11/19 07:23 - ....Imaging Other: Report Reviewed (Lab data reviewed) Problem List - Problems (1) AAA (abdominal aortic aneurysm) Code(s): I71.4 - ABDOMINAL AORTIC ANEURYSM, WITHOUT RUPTURE (2) Failure to thrive Code(s): [id number] - (3) Abnormal weight loss Code(s): R63.4 - ABNORMAL WEIGHT LOSS (4) Cachexia Code(s): R64 - CACHEXIA (5) Dehydration Code(s): E86.0 - DEHYDRATION (6) Acute hypokalemia Code(s): E87.6 - HYPOKALEMIA (7) Debility Code(s): R53.81 - OTHER MALAISE (8) Leukocytosis Code(s): D72.829 - ELEVATED WHITE BLOOD CELL COUNT, UNSPECIFIED (9) Swollen tongue Code(s): R22.0 - LOCALIZED SWELLING, MASS AND LUMP, HEAD (10) Hypoalbuminemia Code(s): E88.09 - OTH DISORDERS OF PLASMA-PROTEIN METABOLISM, NEC (11) Hypoproteinemia Code(s): E77.8 - OTHER DISORDERS OF GLYCOPROTEIN METABOLISM (12) Anemia Code(s): D64.9 - ANEMIA, UNSPECIFIED (13) Hypokalemia Code(s): E87.6 - HYPOKALEMIA (14) Loose stools Code(s): R19.5 - OTHER FECAL ABNORMALITIES Assessment/Plan Assessment/plan: acute generalized muscle weakness, acute UTI, acute Pseudomonas infection, acute dehydration, acute abnormal weight loss (40 lbs within past 6 mo), acute anorexia, acute cachexia, acute severe malnutrition, acute debility, acute oral thrush, acute anemia, acute swelling of tongue; DVT prophylaxis, physical therapy, IV Ceftazidime as per ID, oxygen 2L/min via nasal cannula, discharge planning, manager social responsibility request, transfer to SNF for short term rehab, ?[place].
[2019-04-11 09:50] LABS: ANISOCYTOSIS 0; MACROCYTOSIS 0; PLATELET ESTIMATE NORMAL
[2019-04-11] MEDS ORDERED: DEXTROSE 5%-WATER - 50 ML IVPB ONE (09:59)
[2019-04-11] MEDS ORDERED: cefTAZidime PENTAHYDRATE 1 GM VIAL (RESTRICTED TO ID) ONE (09:59)
[2019-04-11] MEDS: NYSTATIN 500,000 UNITS/5 ML SUSPENSION PO SCH (10:03)
[2019-04-11] MEDS: PANTOPRAZOLE SODIUM 40 MG VIAL IVPUSH SCH (10:04)
[2019-04-11] MEDS: CEFTAZIDIME PENTAHYDRATE 1 GM in DEXTROSE 5%-WATER - 50 ML IVPB SCH (10:06)
[2019-04-11] MEDS: ENOXAPARIN NA (PORCINE) 30 MG/0.3 ML DISP.SYRIN SQ SCH (10:07)
[2019-04-11] MEDS: TIOTROPIUM BROMIDE 2.5 MCG (SPIRIVA) RESPIMAT INHALER IH SCH (10:07)
[2019-04-11] MEDS: POLYETHYLENE GLYCOL 3350 119 GM BTL PO SCH (10:07)
[2019-04-11] MEDS: SENNOSIDES 8.6MG TABLET (FP) PO SCH (21:02)
[2019-04-11] MEDS: MELATONIN 5 MG TABLETS PO SCH (21:09)
[2019-04-12] MEDS: DOCUSATE SODIUM 100 MG CAPSULE (FP) PO SCH (05:10)
[2019-04-12] MEDS: POLYETHYLENE GLYCOL 3350 119 GM BTL PO SCH (09:11)
[2019-04-12] MEDS: TIOTROPIUM BROMIDE 2.5 MCG (SPIRIVA) RESPIMAT INHALER IH SCH (09:11)
[2019-04-12] MEDS: PANTOPRAZOLE SODIUM 40 MG VIAL IVPUSH SCH (09:11)
[2019-04-12] MEDS: ENOXAPARIN NA (PORCINE) 30 MG/0.3 ML DISP.SYRIN SQ SCH (09:11)
--- NOTE | 2019-04-12 11:08 | PN ---
Progress Note, Physician Chief Complaint: Patient seen and examined at the bedside, no acute events from last night, c/o loose stool. History of Present Illness: This 84 yr old w/f with PMH of AAA, depression, HTN, and COPD admitted via ER with an acute exacerbation of generalized muscle weakness, acute UTI, acute Ps eudomonas infection, acute abnormal weight loss (40 lbs within past 6 mo), acute cachexia, acute anorexia, acute severe malnutrition, acute dehydration, failure to thrive, acute debility, acute oral thrush, and an acute swelling of the tongue. - Current Medication List Current Medications: Active Medications Acetaminophen (Tylenol -) 650 mg PO Q6H PRN PRN Reason: MODERATE PAIN Last Admin: 04/08/19 21:44 Dose: 650 mg Documented by: Albuterol/Ipratropium (Duoneb -) 1 amp NEB Q6H PRN PRN Reason: SHORTNESS OF BREATH Docusate Sodium (Colace -) 100 mg PO TID [facility] Last Admin: 04/12/19 05:10 Dose: Not Given Documented by: Enoxaparin Sodium (Lovenox -) 30 mg SQ DAILY [facility] Last Admin: 04/12/19 09:11 Dose: 30 mg Documented by: Melatonin (Melatonin) 10 mg PO HS [facility] Last Admin: 04/11/19 21:09 Dose: 10 mg Documented by: Metoprolol Succinate (Toprol Xl -) 50 mg PO DAILY [facility] Last Admin: 04/12/19 09:11 Dose: 50 mg Documented by: Pantoprazole Sodium (Protonix Iv) 20 mg IVPUSH DAILY [facility] Last Admin: 04/12/19 09:11 Dose: 20 mg Documented by: Polyethylene Glycol (Miralax (For Daily Use) -) 17 gm PO DAILY [facility] Last Admin: 04/12/19 09:11 Dose: Not Given Documented by: Senna (Senna -) 1 tab PO [facility] Last Admin: 04/11/19 21:02 Dose: Not Given Documented by: Tiotropium [place] (Spiriva Respimat) 2 puff IH DAILY [facility] Last Admin: 04/12/19 09:11 Dose: 2 puff Documented by: - Objective Vital Signs: Vital Signs Temperature 98.6 F 04/12/19 09:13 Pulse Rate 83 04/12/19 09:13 Respiratory Rate 20 04/12/19 09:13 Blood Pressure 119/55 L 04/12/19 09:13 O2 Sat by Pulse Oximetry (%) 97 04/11/19 21:00 Constitutional: Yes: No Distress, Calm, Cachectic, Thin Eyes: Yes: Conjunctiva Clear, EOM Intact HENT: Yes: Atraumatic, Normocephalic Neck: Yes: Supple, Trachea Midline Cardiovascular: Yes: Regular Rate and Rhythm Respiratory: Yes: Regular, CTA Bilaterally Gastrointestinal: Yes: Normal Bowel Sounds, Soft ...Rectal Exam: Yes: Deferred Genitourinary: Yes: WNL Breast(s): Yes: WNL Musculoskeletal: Yes: Muscle Weakness Extremities: Yes: Other (generalized muscle weakness) Edema: No Peripheral Pulses WNL: Yes Peripheral Pulses: Left Radial: 2+, Right Radial: 2+ Integumentary: Yes: WNL Neurological: Yes: Alert, Oriented, Unsteady Gait, Weakness ...Motor Strength: LUE (muscle weakness), LLE (muscle weakness), RUE (muscle weakness), RLE (muscle weakness) Psychiatric: Yes: Alert, Oriented Labs: CBC, BMP 04/11/19 07:23 04/11/19 07:23 - ....Imaging Other: Report Reviewed (Lab data reviewed) Problem List - Problems (1) AAA (abdominal aortic aneurysm) Code(s): I71.4 - ABDOMINAL AORTIC ANEURYSM, WITHOUT RUPTURE (2) Failure to thrive Code(s): [id number] - (3) Abnormal weight loss Code(s): R63.4 - ABNORMAL WEIGHT LOSS (4) Cachexia Code(s): R64 - CACHEXIA (5) Dehydration Code(s): E86.0 - DEHYDRATION (6) Acute hypokalemia Code(s): E87.6 - HYPOKALEMIA (7) Debility Code(s): R53.81 - OTHER MALAISE (8) Leukocytosis Code(s): D72.829 - ELEVATED WHITE BLOOD CELL COUNT, UNSPECIFIED (9) Swollen tongue Code(s): R22.0 - LOCALIZED SWELLING, MASS AND LUMP, HEAD (10) Hypoalbuminemia Code(s): E88.09 - OTH DISORDERS OF PLASMA-PROTEIN METABOLISM, NEC (11) Hypoproteinemia Code(s): E77.8 - OTHER DISORDERS OF GLYCOPROTEIN METABOLISM (12) Anemia Code(s): D64.9 - ANEMIA, UNSPECIFIED (13) Hypokalemia Code(s): E87.6 - HYPOKALEMIA (14) Loose stools Code(s): R19.5 - OTHER FECAL ABNORMALITIES Assessment/Plan Assessment/plan: acute generalized muscle weakness, acute UTI, acute Pseudomonas infection, acute abnormal weight loss (40 lbs within past 6 mo), acute cachexia, acute severe malnutrition, acute dehydration, acute anemia, acute anorexia, acute oral thrush, acute debility, acute swelling of tongue; DVT prophylaxis, physical therapy, oxygen 2L/min via nasal cannula, d/c docusate, discharge planning, home health care social worker request, transfer to SNF for short term rehab.
[2019-04-12] MEDS: SENNOSIDES 8.6MG TABLET (FP) PO SCH (21:19)
[2019-04-12] MEDS: MELATONIN 5 MG TABLETS PO SCH (21:19)
--- NOTE | 2019-04-13 09:37 | PN ---
Progress Note, Physician Chief Complaint: Patient seen and examined at the bedside, no acute events from last night, diarrhea yesterday, good appetite. History of Present Illness: This 84 yr old w/f with PMH of AAA, HTN, COPD, and depression admitted via ER with an acute exacerbation of generalized muscle weakness, acute UTI, acute Pseudomonas infection, acute abnormal weight loss (40 lbs within past 6 mo), acute cachexia, acute anorexia, acute dehydration, acute oral thrush, acute swelling of tongue, acute severe malnutrition, failure to thrive, and an acute debility. - Current Medication List Current Medications: Active Medications Acetaminophen (Tylenol -) 650 mg PO Q6H PRN PRN Reason: MODERATE PAIN Last Admin: 04/08/19 21:44 Dose: 650 mg Documented by: Albuterol/Ipratropium (Duoneb -) 1 amp NEB Q6H PRN PRN Reason: SHORTNESS OF BREATH Enoxaparin Sodium (Lovenox -) 30 mg SQ DAILY [facility] Last Admin: 04/12/19 09:11 Dose: 30 mg Documented by: Melatonin (Melatonin) 10 mg PO [facility] Last Admin: 04/12/19 21:19 Dose: 10 mg Documented by: Metoprolol Succinate (Toprol Xl -) 50 mg PO DAILY [facility] Last Admin: 04/12/19 09:11 Dose: 50 mg Documented by: Pantoprazole Sodium (Protonix Iv) 20 mg IVPUSH DAILY [facility] Last Admin: 04/12/19 09:11 Dose: 20 mg Documented by: Polyethylene Glycol (Miralax (For Daily Use) -) 17 gm PO DAILY [facility] Last Admin: 04/12/19 09:11 Dose: Not Given Documented by: Senna (Senna -) 1 tab PO [facility] Last Admin: 04/12/19 21:19 Dose: Not Given Documented by: Tiotropium [place] (Spiriva Respimat) 2 puff IH DAILY [facility] Last Admin: 04/12/19 09:11 Dose: 2 puff Documented by: - Objective Vital Signs: Vital Signs Temperature 98.4 F 04/12/19 18:00 Pulse Rate 83 04/12/19 22:00 Respiratory Rate 20 04/12/19 22:00 Blood Pressure 121/62 04/12/19 22:00 O2 Sat by Pulse Oximetry (%) 94 L 04/12/19 21:00 Constitutional: Yes: No Distress, Calm, Cachectic, Thin Eyes: Yes: Conjunctiva Clear, EOM Intact HENT: Yes: Atraumatic, Normocephalic Neck: Yes: Supple, Trachea Midline Cardiovascular: Yes: Regular Rate and Rhythm Respiratory: Yes: Regular, CTA Bilaterally Gastrointestinal: Yes: Normal Bowel Sounds, Soft, Other (one bout of diarrhea yesterday) ...Rectal Exam: Yes: Deferred Genitourinary: Yes: WNL Breast(s): Yes: WNL Musculoskeletal: Yes: Muscle Weakness Extremities: Yes: Other (generalized muscle weakness) Edema: No Peripheral Pulses WNL: Yes Peripheral Pulses: Left Radial: 2+, Right Radial: 2+ Integumentary: Yes: WNL Neurological: Yes: Alert, Oriented, Unsteady Gait, Weakness ...Motor Strength: LUE (muscle weakness), LLE (muscle weakness), RUE (muscle weakness), RLE (muscle weakness) Psychiatric: Yes: Alert, Oriented Labs: CBC, BMP 04/11/19 07:23 04/11/19 07:23 Problem List - Problems (1) AAA (abdominal aortic aneurysm) Code(s): I71.4 - ABDOMINAL AORTIC ANEURYSM, WITHOUT RUPTURE (2) Failure to thrive Code(s): [id number] - (3) Abnormal weight loss Code(s): R63.4 - ABNORMAL WEIGHT LOSS (4) Cachexia Code(s): R64 - CACHEXIA (5) Dehydration Code(s): E86.0 - DEHYDRATION (6) Acute hypokalemia Code(s): E87.6 - HYPOKALEMIA (7) Debility Code(s): R53.81 - OTHER MALAISE (8) Leukocytosis Code(s): D72.829 - ELEVATED WHITE BLOOD CELL COUNT, UNSPECIFIED (9) Swollen tongue Code(s): R22.0 - LOCALIZED SWELLING, MASS AND LUMP, HEAD (10) Hypoalbuminemia Code(s): E88.09 - OTH DISORDERS OF PLASMA-PROTEIN METABOLISM, NEC (11) Hypoproteinemia Code(s): E77.8 - OTHER DISORDERS OF GLYCOPROTEIN METABOLISM (12) Anemia Code(s): D64.9 - ANEMIA, UNSPECIFIED (13) Hypokalemia Code(s): E87.6 - HYPOKALEMIA (14) Loose stools Code(s): R19.5 - OTHER FECAL ABNORMALITIES (15) Diarrhea Code(s): R19.7 - DIARRHEA, UNSPECIFIED Assessment/Plan Assessment/plan: acute generalized muscle weakness, acute abnormal weight loss (40 lbs within past 6 mo), acute severe malnutrition, acute UTI, acute Pseudomonas infection, acute cachexia, acute diarrhea, acute anorexia, acute dehydration, failure to thrive, acute oral thrush, acute swelling of tongue; d/c senna, and miralax, oxygen 2L/min via nasal cannula, DVT prophylaxis, physical therapy, oral Protonix, discharge plannning, hospice social worker request, transfer to SNF for short term rehab.
[2019-04-13] MEDS ORDERED: DOCUSATE SODIUM 100 MG CAPSULE (FP) PO SCH (10:00)
[2019-04-13] MEDS: PANTOPRAZOLE SODIUM 40 MG VIAL IVPUSH SCH (10:19)
[2019-04-13] MEDS: ENOXAPARIN NA (PORCINE) 30 MG/0.3 ML DISP.SYRIN SQ SCH (10:19)
[2019-04-13] MEDS: POLYETHYLENE GLYCOL 3350 119 GM BTL PO SCH (10:20)
[2019-04-13] MEDS: TIOTROPIUM BROMIDE 2.5 MCG (SPIRIVA) RESPIMAT INHALER IH SCH (10:20)
[2019-04-13] MEDS: MELATONIN 5 MG TABLETS PO SCH (22:23)
[2019-04-14] MEDS: ENOXAPARIN NA (PORCINE) 30 MG/0.3 ML DISP.SYRIN SQ SCH (10:15)
[2019-04-14] MEDS: TIOTROPIUM BROMIDE 2.5 MCG (SPIRIVA) RESPIMAT INHALER IH SCH (10:15)
[2019-04-14] MEDS: PANTOPRAZOLE 20 MG TABLET PO SCH (10:15)
--- NOTE | 2019-04-14 12:43 | PN ---
Progress Note, Physician Chief Complaint: Patient seen and examined at the bedside, no acute events from last night, fair appetite, gradually gaining weight. History of Present Illness: This 84 yr old w/f with PMH of AAA, HTN, COPD, and depression admitted via ER with an acute generalized muscle weakness, acute dehydration, acute UTI, acute Pseudomonas infection, acute abnormal weight loss (40 lbs within past 6 mo), acute severe malnutrition, acute cachexia, acute anorexia, acute oral thrush, acute swelling of tongue, and acute debility. - Current Medication List Current Medications: Active Medications Acetaminophen (Tylenol -) 650 mg PO Q6H PRN PRN Reason: MODERATE PAIN Last Admin: 04/08/19 21:44 Dose: 650 mg Documented by: Albuterol/Ipratropium (Duoneb -) 1 amp NEB Q6H PRN PRN Reason: SHORTNESS OF BREATH Enoxaparin Sodium (Lovenox -) 30 mg SQ DAILY [facility] Last Admin: 04/14/19 10:15 Dose: 30 mg Documented by: Melatonin (Melatonin) 10 mg PO HS [facility] Last Admin: 04/13/19 22:23 Dose: 10 mg Documented by: Metoprolol Succinate (Toprol Xl -) 50 mg PO DAILY [facility] Last Admin: 04/13/19 10:19 Dose: 50 mg Documented by: Pantoprazole Sodium (Protonix -) 20 mg PO DAILY [facility] Last Admin: 04/14/19 10:15 Dose: 20 mg Documented by: Tiotropium [place] (Spiriva Respimat) 2 puff IH DAILY [facility] Last Admin: 04/14/19 10:15 Dose: 2 puff Documented by: - Objective Vital Signs: Vital Signs Temperature 98.0 F 04/14/19 06:00 Pulse Rate 79 04/14/19 06:00 Respiratory Rate 20 04/14/19 06:00 Blood Pressure 131/57 L 04/14/19 06:00 O2 Sat by Pulse Oximetry (%) 100 04/13/19 21:00 Constitutional: Yes: No Distress, Calm, Cachectic, Thin Eyes: Yes: Conjunctiva Clear, EOM Intact HENT: Yes: Atraumatic, Normocephalic Neck: Yes: Supple, Trachea Midline Cardiovascular: Yes: Regular Rate and Rhythm Respiratory: Yes: Regular, CTA Bilaterally Gastrointestinal: Yes: Normal Bowel Sounds, Soft ...Rectal Exam: Yes: Deferred Genitourinary: Yes: WNL Breast(s): Yes: WNL Musculoskeletal: Yes: Muscle Weakness Extremities: Yes: Other (generalized muscle weakness) Edema: No Peripheral Pulses WNL: Yes Peripheral Pulses: Left Radial: 2+, Right Radial: 2+ Integumentary: Yes: WNL Neurological: Yes: Alert, Oriented, Unsteady Gait, Weakness ...Motor Strength: LUE (muscle weakness), LLE (muscle weakness), RUE (muscle weakness), RLE (muscle weakness) Psychiatric: Yes: Alert, Oriented Labs: CBC, BMP 04/11/19 07:23 04/11/19 07:23 Problem List - Problems (1) AAA (abdominal aortic aneurysm) Code(s): I71.4 - ABDOMINAL AORTIC ANEURYSM, WITHOUT RUPTURE (2) Failure to thrive Code(s): [id number] - (3) Abnormal weight loss Code(s): R63.4 - ABNORMAL WEIGHT LOSS (4) Cachexia Code(s): R64 - CACHEXIA (5) Dehydration Code(s): E86.0 - DEHYDRATION (6) Acute hypokalemia Code(s): E87.6 - HYPOKALEMIA (7) Debility Code(s): R53.81 - OTHER MALAISE (8) Leukocytosis Code(s): D72.829 - ELEVATED WHITE BLOOD CELL COUNT, UNSPECIFIED (9) Swollen tongue Code(s): R22.0 - LOCALIZED SWELLING, MASS AND LUMP, HEAD (10) Hypoalbuminemia Code(s): E88.09 - OTH DISORDERS OF PLASMA-PROTEIN METABOLISM, NEC (11) Hypoproteinemia Code(s): E77.8 - OTHER DISORDERS OF GLYCOPROTEIN METABOLISM (12) Anemia Code(s): D64.9 - ANEMIA, UNSPECIFIED (13) Hypokalemia Code(s): E87.6 - HYPOKALEMIA (14) Loose stools Code(s): R19.5 - OTHER FECAL ABNORMALITIES (15) Diarrhea Code(s): R19.7 - DIARRHEA, UNSPECIFIED Assessment/Plan Assessment/plan: acute UTI, acute Pseudomonas infection, acute generalized muscle weakness, acute severe malnutrition, acute abnormal weight loss (40 lbs within past 6 mon), acute cachexia, acute anorexia, acute oral thrush, acute swelling of tongue; DVT prophylaxis, physical therapy (gait and walker), oxygen 2L/min via nasal cannula, discharge planning, [employer] social media and crm request, awaiting transfer to SNF for short term rehab.
[2019-04-14] MEDS: MELATONIN 5 MG TABLETS PO SCH (21:33)
[2019-04-15] MEDS: ENOXAPARIN NA (PORCINE) 30 MG/0.3 ML DISP.SYRIN SQ SCH (10:05)
[2019-04-15] MEDS: PANTOPRAZOLE 20 MG TABLET PO SCH (10:05)
[2019-04-15] MEDS: TIOTROPIUM BROMIDE 2.5 MCG (SPIRIVA) RESPIMAT INHALER IH SCH (10:06)
[2019-04-15 11:04] VITALS: BP 128/47; PULSE 83; TEMP 97.8
--- NOTE | 2019-04-15 11:07 | DS ---
Physical Examination Vital Signs: Vital Signs Temperature 97.9 F 04/15/19 06:00 Pulse Rate 80 04/15/19 06:00 Respiratory Rate 20 04/15/19 06:00 Blood Pressure 133/72 04/15/19 06:00 O2 Sat by Pulse Oximetry (%) 98 04/14/19 21:00 Constitutional: Yes: No Distress, Calm, Cachectic, Thin Eyes: Yes: Conjunctiva Clear, EOM Intact HENT: Yes: Atraumatic, Normocephalic, Thrush (oral thrush resolved) Neck: Yes: Supple, Trachea Midline Cardiovascular: Yes: Regular Rate and Rhythm Respiratory: Yes: Regular, CTA Bilaterally, Tachypnea Gastrointestinal: Yes: Normal Bowel Sounds, Pulsatile Mass (AAA) ...Rectal Exam: Yes: Deferred Renal/: Yes: WNL Breast(s): Yes: WNL Musculoskeletal: Yes: Muscle Weakness Extremities: Yes: Other (generalized muscle weakness, pressure injury of both heels) Edema: No Peripheral Pulses WNL: Yes Peripheral Pulses: Left Radial: 2+, Right Radial: 2+ Integumentary: Yes: WNL Wound/Incision: Yes: Dressing Dry and Intact (heels and coccyx) Neurological: Yes: Alert, Oriented, Unsteady Gait, Weakness ...Motor Strength: LUE (muscle weakness), LLE (muscle weakness), RUE (muscle weakness), RLE (muscle weakness) Psychiatric: Yes: Alert, Oriented Labs: CBC, BMP 04/11/19 07:23 04/11/19 07:23 Discharge Summary Problems reviewed: Yes Reason For Visit: FAILURE TO THRIVE Current Active Problems AAA (abdominal aortic aneurysm) (Acute) Abnormal weight loss (Acute) Acute hypokalemia (Acute) Anemia (Acute) Cachexia (Acute) Debility (Acute) Dehydration (Acute) Diarrhea (Acute) Failure to thrive (Acute) Fecal retention (Acute) Hypoalbuminemia (Acute) Hypokalemia (Acute) Hypoproteinemia (Acute) Leukocytosis (Acute) Loose stools (Acute) Swollen tongue (Acute) UTI (urinary tract infection) (Acute) Condition: Guarded - Instructions Diet, Activity, Other Instructions: Continue on hospital meds. Physical therapy. Activity as tolerated. Transfer to [facility]. Total time spent over 30 minutes. Referrals: ON STAFF,NOT [Primary Care Provider] - Disposition: [facility] - Home Medications Comprehensive Discharge Medication List: Ambulatory Orders Acetaminophen [Tylenol] 650 mg PO PRN PRN 04/02/19 Albuterol Sulfate [Proair Hfa] 8.5 gm IH PRN PRN 04/02/19 Calcium Carbonate [Calcium] 600 mg PO DAILY 04/02/19 Docusate Sodium [Colace] 100 mg PO TID 04/02/19 Melatonin 10 mg PO HS 04/02/19 Metoprolol Succinate 50 mg PO DAILY 04/02/19 Polyethylene Glycol 3350 [Miralax 119 gm Btl -] 17 gm PO DAILY 04/02/19 Sennosides [Senna] 8.6 mg PO HS 04/02/19 Tiotropium [place] [Spiriva] 18 mcg IH DAILY 04/02/19 Vit C/E/Zn/Coppr/Lutein/Zeaxan [Preservision Areds 2 Softgel] 1 each PO BID 04/02/19 Acetaminophen [Tylenol .Regular Strength -] 650 mg PO Q6H PRN tablet 04/11/19 Albuterol 2.5/Ipratropium 0.5 [Duoneb -] 1 amp NEB Q6H PRN amp 04/11/19 Docusate Sodium [Colace -] 100 mg PO TID capsule 04/11/19 Melatonin 10 mg PO HS tab 04/11/19 Metoprolol Succinate [Toprol XL -] 50 mg PO DAILY tab.sr.24h 04/11/19 Polyethylene Glycol 3350 [Miralax 119 gm Btl -] 17 gm PO DAILY bottle 04/11/19 Sennosides [Senna -] 1 tab PO HS tablet 04/11/19 Tiotropium [place] [Spiriva Respimat] 2 puff IH DAILY inhaler 04/11/19
== END 2019-04-15 13:57 | DRG 689 ==
LOC: JER 20:09 → JERBED 04-02 02:09 → J5S 04-02 17:21
PROVIDERS: ADMIT Internal Medicine; ATTEND Internal Medicine
DX: N39.0 Urinary tract infection, site not specified (principal); E43 Unspecified severe protein-calorie malnutrition; Z68.1 Body mass index [BMI] 19.9 or less, adult; R64 Cachexia; E87.1 Hypo-osmolality and hyponatremia; B37.0 Candidal stomatitis; R62.7 Adult failure to thrive; I10 Essential (primary) hypertension; J44.9 Chronic obstructive pulmonary disease, unspecified; I71.4 Abdominal aortic aneurysm, without rupture; I45.10 Unspecified right bundle-branch block; F32.9 Major depressive disorder, single episode, unspecified; E86.0 Dehydration; D72.829 Elevated white blood cell count, unspecified; E88.09 Other disorders of plasma-protein metabolism, not elsewhere classified; R22.0 Localized swelling, mass and lump, head; R82.81 Pyuria; R19.7 Diarrhea, unspecified; K59.00 Constipation, unspecified; R26.81 Unsteadiness on feet; D64.9 Anemia, unspecified; E77.8 Other disorders of glycoprotein metabolism; B96.5 Pseudomonas (aeruginosa) (mallei) (pseudomallei) as the cause of diseases classified elsewhere; E87.6 Hypokalemia; R53.81 Other malaise; R19.5 Other fecal abnormalities; L89.151 Pressure ulcer of sacral region, stage 1; L89.521 Pressure ulcer of left ankle, stage 1; L89.511 Pressure ulcer of right ankle, stage 1; Z66 Do not resuscitate; Z74.01 Bed confinement status
CPT/HCPCS: 36415; 70450-TC; 71045-TC-FY; 74177-TC; 80053; 81003; 82550; 82607; 83880; 84443; 84484; 85025; 87040; 87086; 87186; 93005; 93010; 97116-GP; 97162-GP; 99285-25; J7030